=== PATIENT | female | born 1995 | race Caucasian/White ===

== ENCOUNTER 2016-06-10 11:28 | Inpatient (IN) | payer OTHER ==
[~2016-06-10] VITALS: Ht 162.6 cm; Wt 63.4 kg
[2016-06-10 12:27] LABS: AMPHETAMINES LEVEL URINE NEGATIVE (NEGATIVE); BENZODIAZEPINES URINE NEGATIVE (NEGATIVE); COCAINE METABOLITE URINE NEGATIVE (NEGATIVE); CONTROL LINE INT CTR LINE PRESENT; METHADONE URINE NEGATIVE (NEGATIVE); OPIATES URINE NEGATIVE (NEGATIVE); TRICYCLIC ANTIDEPRESS URINE NEGATIVE (NEGATIVE)
[2016-06-10 12:31] LABS: MEAN CORPUSCULAR HEMOGLOBIN 30.2 pg (27.0-33.0); MEAN CORPUSCULAR HGB CONC 34.2 g/dl (32.0-36.5); MEAN CORPUSCULAR VOLUME 88.2 fl (80.0-96.0); RED CELL DISTRIBUTION WIDTH 11.9 % (11.5-14.5); WHITE BLOOD COUNT 5.5 K/mm3 (4.0-10.0)
[2016-06-10 12:47] LABS: ALBUMIN 4.2 GM/DL (3.2-5.2); ALBUMIN/GLOBULIN RATIO 1.35 (1.00-1.93); ALKALINE PHOSPHATASE 72 U/L (45-117); ALT/SGPT 32 U/L (12-78); ANION GAP 7 MEQ/L (8-16); AST/SGOT 20 U/L (15-37); BILIRUBIN,DIRECT 0.1 MG/DL (0.0-0.2); BILIRUBIN,TOTAL 0.5 MG/DL (0.2-1.0); BLOOD UREA NITROGEN 13 MG/DL (7-18); CALCIUM LEVEL 8.6 MG/DL (8.5-10.1); CARBON DIOXIDE LEVEL 26 MEQ/L (21-32); CHLORIDE LEVEL 106 MEQ/L (98-107); CREATININE FOR GFR 0.75 MG/DL (0.55-1.02); GLUCOSE, FASTING 86 MG/DL (70-105); POTASSIUM SERUM 3.9 MEQ/L (3.5-5.1); SODIUM LEVEL 139 MEQ/L (136-145); TOTAL PROTEIN 7.3 GM/DL (6.4-8.2)
[2016-06-10] MEDS ORDERED: VITMTA PO (16:19)
[2016-06-10] MEDS ORDERED: LORazepam 1 MG TAB As Ordered ONE (16:28)
[2016-06-10] MEDS ORDERED: MAALOX 30 ML SUSP *UDC PO PRN (16:30)
[2016-06-10] MEDS ORDERED: MOM 30ML SUSPENSION UDC PO PRN (16:30)
[2016-06-10] MEDS ORDERED: traZODone 50 MG TAB PO PRN (16:30)
--- NOTE | 2016-06-10 16:33 | EDDOCDS ---
Physician Documentation [facility] Name: Basilia Matias Age: 21 yrs Sex: Female : 1995 Arrival Date: 06/10/2016 Time: 11:28 Bed [facility] Private MD: Disposition: 06/10/16 15:34 Hospitalization ordered by Felice Shelton for Inpatient Admission. Preliminary diagnosis is Major depressive disorder, single episode, unspecified. - Bed requested for Admit. - Status is Inpatient Admission. bcj - Condition is Stable. - Problem is new. - Symptoms have improved. Historical: - Allergies: Prednisone; - Home Meds: 1. multivitamin Oral tab 1 tablet daily - PMHx: Heart Murmur; Scoliosis; - PSHx: labial surgery; Tonsillectomy; Adenoidectomy; - Social history: Smoking status: Patient states was never smoker of tobacco. No barriers to communication noted, The patient speaks fluent Bulgarian, Speaks appropriately for age. - Family history: Not pertinent. - : The pt / caregiver states he / she is not on anticoagulants. Home medication list is obtained from the patient. - Exposure Risk Screening:: None identified. 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 fg 11:39 Consult PFS/PSA/Accountant Auditor: Patient's case requires discussion with on-call fg Psychiatrist ordered. 11:39 PSA/PFS to call Nursing Last Sawyer, to enter patient data on [place] Safe Act if patient fg involuntarily admitted or transferred for SI or HI ordered. 11:39 Confirm accurate psychiatric medication list and times of last dosage ordered. fg 11:39 Detain Pt Until Medically/PFS Cleared ordered. fg 11:40 Acetaminophen Level Ordered. EDMS 11:40 Basic Metabolic Profile Ordered. EDMS 11:40 Complete Blood Count Ordered. EDMS 11:40 Drug Eval Toxicology ED Only Ordered. EDMS 11:40 Ethyl Alcohol (ethanol) Ordered. EDMS 11:40 Liver Profile Ordered. EDMS 11:40 Salicylate Level Ordered. EDMS 11:40 Thyroid Stimulating Hormone Ordered. EDMS 12:04 UCG by Nursing ordered. jjr 15:43 Admit to [facility]: ordered. EDMS 15:49 Consult PFS/PSA/Accountant Auditor complete. bcj 15:49 Consult PFS/PSA/Accountant Auditor: Patient's case requires discussion with on-call [facility] Psychiatrist complete. 15:51 Financial registration complete. zo 15:56 MHE Legal paperwork was scanned into [employer] and attached to record. jl 16:05 [facility] Payment Agreement was scanned into [employer] and attached to record. zo 16:24 REGULAR DIET ordered. EDMS 16:27 LORazepam 0.5 mg PO once ordered. fg Point of Care Testing: Urine : 12:04 hCG Reading: Negative; Control Reading: Positive; jjr Ranges: Administered Medications: 16:32 Drug: LORazepam 0.5 mg [lorazepam 1 mg tablet (0.5 tabs)] Route: PO; [facility] Signatures: Dispatcher [employer] EDMN Eyad Bird RN RN bcMichael Blancas PSA PSA jl Nyla Fox Jessica, RN RN jjr Quay, PaulinaRN Christina Jordan MD MD fg The chart was reviewed and I authenticate all verbal orders and agree with the evaluation and treatment provided.Corrections: (The following items were deleted from the chart) 12:05 12:03 LAB URINE TEST+LAB ordered. EDMS EDMS Attachments: 16:05 [facility] Payment Agreement zo MTDD
--- NOTE | 2016-06-10 16:34 | EDDOCDS ---
Nurse's Notes [facility] Name: Basilia Matias Age: 21 yrs Sex: Female : 1995 Arrival Date: 06/10/2016 Time: 11:28 Bed [facility] Private MD: Diagnosis: Major depressive disorder, single episode, unspecified Presentation: 06/10 11:38 Presenting complaint: Patient states: had a panic attack last night - states long hx of pml anxiety. spoke with [facility] today and was sent here for further eval for SI with plan. Mental Health Triage Level: Level 2: The patient displays active suicidal ideations. Adult Sepsis Screening: The patient does not have new or worsening altered mentation. Patient's respiratory rate is less than 22. Systolic blood pressure is greater than 100. Patient has a qSOFA score of 0- Negative Sepsis Screen. Suicide/Homicide risk assessment- the patient denies having any suicidal and/or homicidal ideations and does not present with any other emotional, behavioral or mental health complaints. Status: The patient is a dependent. Transition of care: patient was not received from another setting of care. 11:38 Acuity: RODDY Level 3 pml 11:38 Method Of Arrival: Walkin/Carried/Asstd pml Triage Assessment: 11:39 General: Appears in no apparent distress, comfortable, Behavior is appropriate for age, pml cooperative. Pain: Denies pain. HIV screening NA for this visit Offered previously. The patient is triaged at the bedside. See Assessment in Nurses Notes section of ED record. Neurological: Level of Consciousness is awake, alert, Oriented to person, place, time. Cardiovascular: Capillary refill < 3 seconds. Respiratory: Airway is patent Respiratory effort is even, unlabored, Respiratory pattern is regular, symmetrical. GI: Abdomen is non- distended. Derm: Skin is pink, warm & dry. 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 multivitamin Oral tab 1 tablet daily - PMHx: Heart Murmur; Scoliosis; - PSHx: labial surgery; Tonsillectomy; Adenoidectomy; - Social history: Smoking status: Patient states was never smoker of tobacco. No barriers to communication noted, The patient speaks fluent Sami, Speaks appropriately for age. - Family history: Not pertinent. - : The pt / caregiver states he / she is not on anticoagulants. Home medication list is obtained from the patient. - Exposure Risk Screening:: None identified. Screenin:32 Screening information is obtained from the patient. Fall risk: No risks identified. bcj Assistance ADL's: requires no assistance with activities of daily living. Abuse/DV Screen: The patient / caregiver reports he/she is: not in a situation that causes fear, pain or injury. Nutritional screening: No deficits noted. Advance Directives: Currently, there is no health care proxy. home support is adequate. Assessment: 12:05 General: Appears in no apparent distress, well nourished, well groomed, Behavior is jjr appropriate for age, cooperative. Neurological: No deficits noted. Respiratory: No deficits noted. Derm: No deficits noted. 15:32 General: Appears in no apparent distress, comfortable, Behavior is cooperative. Pain: bcj Denies pain. Derm: Skin is pink, warm & dry. Mental Health Eval: 13:38 Mental health consult is initiated at 13:00. 14:19 Status: The patient is a dependent. [facility] Behavioral Health: The patient is not an established patient of [facility] Behavioral Health. Referral Information: Evaluation referral is generated by the patient's therapist Felipa Bennett at [facility]. The patient was referred for evaluation because Pt was seen at [facility] today, informed counselor that she is depressed, having suicidal thoughts with plan to hang self from ceiling fan. PT also states she thinks about cutting self all the time. 15:03 Subjective: The patients chief complaint is Pt presented on referral from counselor at [facility] . Pt reports she has been feeling increasingly depressed, having panic attacks "and everything goes downhill from there". 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 Pt states she thinks about hanging herself from the ceiling fan.. Delusions are denied. Patient's mood is depressed, Hallucinations are denied. Mental Health history: anxiety, depression, self -mutilation, sleep disturbance, Mental Health Admissions: None. Current Outpatient Mental Health Services: Therapist / Agency: Felipa Bennett at [facility]. Vital Signs: 11:47 BP 121 / 78; Pulse 80; Resp 18; Temp 97.2(T); Pulse Ox 99% on R/A; Weight 63.5 kg (R); dpm 15:48 BP 106 / 69; Pulse 76; Resp 18; Temp 98.5(O); Pulse Ox 96% on R/A; Pain 0/10; bcj Vitals: 11:39 Log In Time N/A - ambulance arrival. [facility] ED Course: 11:29 Patient visited by Rosie Silva Reg. lg 11:[address] [facility] 11:29 Patient moved to [facility] dpm 11:39 Triage Initiated [facility] 11:40 Christina Conner MD is Attending Physician. fg 11:41 Patient visited by Lesli Rocha RN. pml 11:47 Patient visited by Glenn Sánchez. dpm 11:50 Pt greeted and oriented to ED. Patient advised of names of staff involved in care, dpm location of call [place], wait times and NPO status. Patient has correct armband on for positive identification. Placed in gown. Placed in psych safe attire. Bed in low position. Side rails up X 1. Security observing. Property removed, inventory done, secured in belongings bag- placed in locked locker. Placed in locker 3. Lesli Maldonado observed pt while changing. Psych Safety Check: Location: Psych Room. Visual Assessment: Cooperative. 12:01 Patient visited by Glenn Sánchez. dpm 12:04 Acetaminophen Level Sent. jjr 12:04 Basic Metabolic Profile Sent. jjr 12:04 Complete Blood Count Sent. jjr 12:04 Drug Eval Toxicology ED Only Sent. jjr 12:04 Ethyl Alcohol (ethanol) Sent. jjr 12:04 Liver Profile Sent. jjr 12:04 Salicylate Level Sent. jjr 12:04 Thyroid Stimulating Hormone Sent. jjr 12:05 Patient visited by Tete Tovar RN. jjr 12:05 The patient / caregiver is instructed regarding the plan of care and ED course. jjr 12:17 Patient visited by Glenn Sánchez. dpm 12:36 Patient visited by Glenn Sánchez. dpm 12:46 Patient visited by Glenn Sánchez. dpm 13:03 Patient visited by Glenn Sánchez. dpm 13:18 Patient visited by Glenn Sánchez. dpm 13:32 Patient visited by Glenn Sánchez. dpm 13:48 Patient visited by Glenn Sánchez. dpm 14:17 Patient visited by Glenn Sánchez. dpm 14:57 Patient visited by Glenn Sánchez. dpm 14:57 Patient visited by Christina Conner MD. fg 15:17 Patient visited by Glenn Sánchez. dpm 15:32 No apparent distress. Resting quietly. awaiting re-evaluation by ER physician. bcj 15:32 Labs drawn. (by ED staff). Sent per order to lab. Urine collected. Clean catch bcj specimen. Urine specimen sent to lab. 15:33 Patient visited by Eyad Bird, RN. bcj 15:33 Felice Shelton MD is Hospitalizing Provider. fg 15:43 Patient visited by Glenn Sánchez. dpm 15:48 Patient visited by Eyad Bird, RN. j 15:56 E Legal paperwork was scanned into [employer] and attached to record. jl 16:00 Patient visited by Glenn Sánchez. dpm 16:05 [facility] Payment Agreement was scanned into [employer] and attached to record. zo 16:11 No IV's were initiated during this patient's visit. No procedures done that require pml assistance. 16:12 Patient visited by Lesli Rocha RN. pml 16:24 Patient visited by Eyad Bird, RN. bcj Administered Medications: 16:32 Drug: LORazepam 0.5 mg [lorazepam 1 mg tablet (0.5 tabs)] Route: PO; [facility] Attachments: 15:56 E Legal paperwork jl Point of Care Testing: Urine : 12:04 hCG Reading: Negative; Control Reading: Positive; jjr Ranges: Order Results: Lab Order: Acetaminophen Level; SPEC'M 06/10/16 11:59 Test: ACETAMINOPHEN LEVEL; Value: < 2.0; Range: 10.0-30.0; Abnormal: Below low normal; Units: UG/ML; Status: F Lab Order: Basic Metabolic Profile; SPEC'M 06/10/16 11:59 Test: GLUCOSE, FASTING; Value: 86; Range: 70-105; Units: MG/DL; Status: F Test: BLOOD UREA NITROGEN; Value: 13; Range: 7-18; Units: MG/DL; Status: F Test: CREATININE FOR GFR; Value: 0.75; Range: 0.55-1.02; Units: MG/DL; Status: F Test: SODIUM LEVEL; Value: 139; Range: 136-145; Units: MEQ/L; Status: F Test: POTASSIUM SERUM; Value: 3.9; Range: 3.5-5.1; Units: MEQ/L; Status: F Test: CHLORIDE LEVEL; Value: 106; Range: 98-107; Units: MEQ/L; Status: F Test: CARBON DIOXIDE LEVEL; Value: 26; Range: 21-32; Units: MEQ/L; Status: F Test: ANION GAP; Value: 7; Range: 8-16; Abnormal: Below low normal; Units: MEQ/L; Status: F Test: CALCIUM LEVEL; Value: 8.6; Range: 8.5-10.1; Units: MG/DL; Status: F Lab Order: Complete Blood Count; SPEC'M 06/10/16 11:59 Test: WHITE BLOOD COUNT; Value: 5.5; Range: 4.0-10.0; Units: K/mm3; Status: F Test: RED BLOOD COUNT; Value: 4.66; Range: 4.00-5.40; Units: M/mm3; Status: F Test: HEMOGLOBIN; Value: 14.1; Range: 12.0-16.0; Units: g/dl; Status: F Test: HEMATOCRIT; Value: 41.1; Range: 36.0-47.0; Units: %; Status: F Test: MEAN CORPUSCULAR VOLUME; Value: 88.2; Range: 80.0-96.0; Units: fl; Status: F Test: MEAN CORPUSCULAR HEMOGLOBIN; Value: 30.2; Range: 27.0-33.0; Units: pg; Status: F Test: MEAN CORPUSCULAR HGB CONC; Value: 34.2; Range: 32.0-36.5; Units: g/dl; Status: F Test: RED CELL DISTRIBUTION WIDTH; Value: 11.9; Range: 11.5-14.5; Units: %; Status: F Test: PLATELET COUNT, AUTOMATED; Value: 240; Range: 150-450; Units: k/mm3; Status: F Lab Order: Drug Eval Toxicology ED Only; SPEC'M 06/10/16 11:59 Test: AMPHETAMINES LEVEL URINE; Value: NEGATIVE; Range: NEGATIVE; Status: F Test: BARBITURATES URINE; Value: NEGATIVE; Range: NEGATIVE; Status: F Test: BENZODIAZEPINES URINE; Value: NEGATIVE; Range: NEGATIVE; Status: F Test: CANNABINOIDS URINE; Value: NEGATIVE; Range: NEGATIVE; Status: F Test: COCAINE METABOLITE URINE; Value: NEGATIVE; Range: NEGATIVE; Status: F Test: METHADONE URINE; Value: NEGATIVE; Range: NEGATIVE; Status: F Test: OPIATES URINE; Value: NEGATIVE; Range: NEGATIVE; Status: F Test: TRICYCLIC ANTIDEPRESS URINE; Value: NEGATIVE; Range: NEGATIVE; Status: F Test Note: ; ALL PRESUMPTIVE POSITIVE FINDINGS ARE UNCONFIRMED NORMAL VALUES THRESHOLD IN NG/ML AMPHETAMINES 1000 METHAMPHETAMINES 1000 BARBITURATES 300 BENZODIAZEPINES 300 CANNABINOIDS (THC) 50 COCAINE METABOLITE 300 METHADONE 300 OPIATES 300 PHENCYCLIDINE 25 TRICYCLIC ANTIDEPRESSANTS 1000 RESULTS ARE FOR MEDICAL PURPOSES ONLY. ALL URINE SPECIMENS WILL BE SAVED FOR 3 DAYS. IF CONFIRMATION OF A PRESUMPTIVE POSTIVE SCREEN RESULT IS DESIRED, CALL CHEMISTRY ([phone]) AND REQUEST URINE TO BE SENT TO REFERENCE LAB. FOR A LIST OF CLOSELY RELATED COMPOUNDS PLEASE CALL THE LAB. Lab Order: Ethyl Alcohol (ethanol); SPEC'M 06/10/16 11:59 Test: ETHYL ALCOHOL (ETHANOL); Value: < 0.003; Range: 0.000-0.010; Units: %; Status: F Lab Order: Liver Profile; SPEC'M 06/10/16 11:59 Test: AST/SGOT; Value: 20; Range: 15-37; Units: U/L; Status: F Test: ALT/SGPT; Value: 32; Range: 12-78; Units: U/L; Status: F Test: ALKALINE PHOSPHATASE; Value: 72; Range: 45-117; Units: U/L; Status: F Test: BILIRUBIN,TOTAL; Value: 0.5; Range: 0.2-1.0; Units: MG/DL; Status: F Test: BILIRUBIN,DIRECT; Value: 0.1; Range: 0.0-0.2; Units: MG/DL; Status: F Test: TOTAL PROTEIN; Value: 7.3; Range: 6.4-8.2; Units: GM/DL; Status: F Test: ALBUMIN; Value: 4.2; Range: 3.2-5.2; Units: GM/DL; Status: F Test: ALBUMIN/GLOBULIN RATIO; Value: 1.35; Range: 1.00-1.93; Status: F Lab Order: Salicylate Level; SPEC'M 06/10/16 11:59 Test: SALICYLATE LEVEL; Value: < 1.7; Range: 5.0-30.0; Abnormal: Below low normal; Units: MG/DL; Status: F Lab Order: Thyroid Stimulating Hormone; SPEC'M 06/10/16 11:59 Test: THYROID STIMULATING HORMONE; Value: 0.973; Range: 0.463-3.98; Units: uIU/ML; Status: F Outcome: 15:34 Decision to Hospitalize by Provider. fg 16:11 Discharge Assessment: patient administered narcotics - no. The following High Risk pml Discharge criteria are identified: None. Admitted to Psych accompanied by tech, via wheelchair. Condition: stable. No special radiology studies were completed. 16:32 Patient left the ED. [facility] Signatures: Eyad Bird, RN RN Tanner Hammer PSA PSA ac Michael Toth, PSA PSA Rosie Vallejo Reg Reg lg Olin, Zoeann zo Raymond, Jessica, Lesli Haddad RN, RN RN pml Marolf, Dustin dpm Gill, Frances, MD MD fg Corrections: (The following items were deleted from the chart) 15:27 14:19 Referral Information: Evaluation referral is generated by the patient's therapist crista Bennett at [facility]. The patient was referred for evaluation because Pt was seen at [facility] today, informed counselor that she is depressed, having suicidal thoughts with plan to hang self from ceiling fan. PT also states she thinks about cutting self all thetime. crista MTDD
[2016-06-10 17:20] VITALS: BP 138/77
[2016-06-10] MEDS ORDERED: MULTIVITAMINS/MINERALS THERAP 1 TAB PO ONE (18:00)
[2016-06-10 18:32] LABS: CONTROL LINE UCG INT CTR LINE PRESENT
[2016-06-11 18:00] VITALS: BP 116/74
[2016-06-11] MEDS: ACETAMINOPHEN TAB 650MG DOSE (2X325MG) PO PRN (20:43)
[2016-06-11] MEDS: traZODone 100 MG TAB PO SCH (22:14)
[2016-06-12 06:23] VITALS: BP 109/56
[2016-06-12] MEDS: ACETAMINOPHEN TAB 650MG DOSE (2X325MG) PO PRN (06:40)
[2016-06-12] MEDS: SERTRALINE HCL 25 MG TABLET PO SCH (08:15)
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
--- NOTE | 2016-06-12 17:34 | EDDOCDS ---
Nurse's Notes [facility] Name: Basilia Matias Age: 21 yrs Sex: Female : 1995 Arrival Date: 06/10/2016 Time: 11:28 Bed [facility] Private MD: Diagnosis: Major depressive disorder, single episode, unspecified Presentation: 06/10 11:38 Presenting complaint: Patient states: had a panic attack last night - states long hx of pml anxiety. spoke with [facility] today and was sent here for further eval for SI with plan. Mental Health Triage Level: Level 2: The patient displays active suicidal ideations. Adult Sepsis Screening: The patient does not have new or worsening altered mentation. Patient's respiratory rate is less than 22. Systolic blood pressure is greater than 100. Patient has a qSOFA score of 0- Negative Sepsis Screen. Suicide/Homicide risk assessment- the patient denies having any suicidal and/or homicidal ideations and does not present with any other emotional, behavioral or mental health complaints. Status: The patient is a dependent. Transition of care: patient was not received from another setting of care. 11:38 Acuity: RODDY Level 3 pml 11:38 Method Of Arrival: Walkin/Carried/Asstd pml Triage Assessment: 11:39 General: Appears in no apparent distress, comfortable, Behavior is appropriate for age, pml cooperative. Pain: Denies pain. HIV screening NA for this visit Offered previously. The patient is triaged at the bedside. See Assessment in Nurses Notes section of ED record. Neurological: Level of Consciousness is awake, alert, Oriented to person, place, time. Cardiovascular: Capillary refill < 3 seconds. Respiratory: Airway is patent Respiratory effort is even, unlabored, Respiratory pattern is regular, symmetrical. GI: Abdomen is non- distended. Derm: Skin is pink, warm & dry. HEAD BAKER: 11:39 LMP 05/08/2016 pml Historical: - Allergies: Prednisone; - Home Meds: 1. multivitamin Oral tab 1 tablet daily - PMHx: Heart Murmur; Scoliosis; - PSHx: labial surgery; Tonsillectomy; Adenoidectomy; - Social history: Smoking status: Patient states was never smoker of tobacco. No barriers to communication noted, The patient speaks fluent Croatian, Speaks appropriately for age. - Family history: Not pertinent. - : The pt / caregiver states he / she is not on anticoagulants. Home medication list is obtained from the patient. - Exposure Risk Screening:: None identified. Screenin:32 Screening information is obtained from the patient. Fall risk: No risks identified. bcj Assistance ADL's: requires no assistance with activities of daily living. Abuse/DV Screen: The patient / caregiver reports he/she is: not in a situation that causes fear, pain or injury. Nutritional screening: No deficits noted. Advance Directives: Currently, there is no health care proxy. home support is adequate. Assessment: 12:05 General: Appears in no apparent distress, well nourished, well groomed, Behavior is jjr appropriate for age, cooperative. Neurological: No deficits noted. Respiratory: No deficits noted. Derm: No deficits noted. 15:32 General: Appears in no apparent distress, comfortable, Behavior is cooperative. Pain: bcj Denies pain. Derm: Skin is pink, warm & dry. Mental Health Eval: 13:38 Mental health consult is initiated at 13:00. 14:19 Status: The patient is a dependent. [facility] Behavioral Health: The patient is not an established patient of [facility] Behavioral Health. Referral Information: Evaluation referral is generated by the patient's therapist Felipa Bennett at [facility]. The patient was referred for evaluation because Pt was seen at [place] today, informed counselor that she is depressed, having suicidal thoughts with plan to hang self from ceiling fan. PT also states she thinks about cutting self all the time. 15:03 Subjective: The patients chief complaint is Pt presented on referral from counselor at [facility] . Pt reports she has been feeling increasingly depressed, having panic attacks "and everything goes downhill from there". 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 Pt states she thinks about hanging herself from the ceiling fan.. Delusions are denied. Patient's mood is depressed, Hallucinations are denied. Mental Health history: anxiety, depression, self -mutilation, sleep disturbance, Mental Health Admissions: None. Current Outpatient Mental Health Services: Therapist / Agency: Felipa Bennett at [facility]. 15:30 Patient presents to Emergency Department with the following symptoms within the past 2 weeks: anxiety, depressed mood. Substance abuse: Pt denies. Mental status exam: Patients appearance is appropriate, Patient's behavior is cooperative, Speech is normal. Affect is appropriate. Mood is depressed. Hallucinations are denied. Appetite is normal. Memory is good. Energy level is normal. Content of thought is normal. Thought process is intact. Cognitive level is oriented to person, place, time and situation Patient's insight is fair. Judgement is poor. Rapport with interviewer is good. Suicidal Ideation present with a plan to kill self by hanging. Homicidal ideation is not present. Disposition: Medically cleared for disposition by Christina Conner MD Psychiatric Consult is performed by phone with Dr Felice Shelton MD. ON LICENSE OF [facility] Admission Criteria: The patient is experiencing suicidal ideation. The patient requires continuous observation and/or control to protect self, others or property. The patient's care requires a multi-modal treatment plan under close supervision and coordination due to the complexity and severity of the patient's symptoms. The patient requires administration and monitoring of psychoactive medications by skilled medical providers due to the side effects of the psychoactive medications or significant dosage adjustments. Legal Status: Patient's legal status will be Emergency admission: . [place] Safe Act: [place] Safe Act is applicable to this patient. The patient poses a risk to self or other and the Nursing Medicine Worker has been notified. He/She will enter the patient's data. DSM-V Differential Diagnosis: Unspecified Depressive Disorder (F32.9). Insurance Pre-Certification: Not Required. Narrative: Pt presented on referral from counselor at [facility]. Pt states she gets panic attacks and then starts thinking about cutting herself. 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 Pt also states that she has suicidal thoughts of hanging herself by ceiling fan. Pt denies HI, no AH/VH, no drug or ETOH use. PT denies inpatient hx. Pt states she is concerned that because her is leaving for [place] for 9 months, and his 18 yo brother is staying with her, that she will not have enough support at home. Pt remains very anxious, states she doesn't want to stay in hospital. Pt is not able to provide adequate safety plan at this time. Vital Signs: 11:47 BP 121 / 78; Pulse 80; Resp 18; Temp 97.2(T); Pulse Ox 99% on R/A; Weight 63.5 kg (R); dpm 15:48 BP 106 / 69; Pulse 76; Resp 18; Temp 98.5(O); Pulse Ox 96% on R/A; Pain 0/10; bcj Vitals: 11:39 Log In Time N/A - ambulance arrival. [facility] ED Course: 11:29 Patient visited by Rosie Silva Reg. lg 11:29 Patient moved to [facility] 11:29 Patient moved to [facility] dpm 11:39 Triage Initiated [facility] 11:40 Christina Conner MD is Attending Physician. fg 11:41 Patient visited by Lesli Rocha RN. pml 11:47 Patient visited by Glenn Sánchez. dpm 11:50 Pt greeted and oriented to ED. Patient advised of names of staff involved in care, dpm location of call [place], wait times and NPO status. Patient has correct armband on for positive identification. Placed in gown. Placed in psych safe attire. Bed in low position. Side rails up X 1. Security observing. Property removed, inventory done, secured in belongings bag- placed in locked locker. Placed in locker 3. Lesli Maldonado observed pt while changing. Psych Safety Check: Location: Psych Room. Visual Assessment: Cooperative. 12:01 Patient visited by Glenn Sánchez. dpm 12:04 Acetaminophen Level Sent. jjr 12:04 Basic Metabolic Profile Sent. jjr 12:04 Complete Blood Count Sent. jjr 12:04 Drug Eval Toxicology ED Only Sent. jjr 12:04 Ethyl Alcohol (ethanol) Sent. jjr 12:04 Liver Profile Sent. jjr 12:04 Salicylate Level Sent. jjr 12:04 Thyroid Stimulating Hormone Sent. jjr 12:05 Patient visited by Tete Tovar RN. jjr 12:05 The patient / caregiver is instructed regarding the plan of care and ED course. jjr 12:17 Patient visited by Glenn Sánchez. dpm 12:36 Patient visited by Glenn Sánchez. dpm 12:46 Patient visited by Glenn Sánchez. dpm 13:03 Patient visited by Glenn Sánchez. dpm 13:18 Patient visited by Glenn Sánchez. dpm 13:32 Patient visited by Glenn Sánchez. dpm 13:48 Patient visited by Glenn Sánchez. dpm 14:17 Patient visited by Glenn Sánchez. dpm 14:57 Patient visited by Glenn Sánchez. dpm 14:57 Patient visited by Crhistina Conner MD. fg 15:17 Patient visited by Glenn Sánchez. dpm 15:32 No apparent distress. Resting quietly. awaiting re-evaluation by ER physician. bcj 15:32 Labs drawn. (by ED staff). Sent per order to lab. Urine collected. Clean catch j specimen. Urine specimen sent to lab. 15:33 Patient visited by Eyad Bird, RN. bcj 15:33 Felice Shelton MD is Hospitalizing Provider. fg 15:43 Patient visited by Glenn Sánchez. dpm 15:48 Patient visited by Eyad Bird, RN. j 15:56 E Legal paperwork was scanned into [employer] and attached to record. jl 16:00 Patient visited by Glenn Sánchez. dpm 16:05 [facility] Payment Agreement was scanned into [employer] and attached to record. zo 16:11 No IV's were initiated during this patient's visit. No procedures done that require pml assistance. 16:12 Patient visited by Lesli Rocha RN. pml 16:24 Patient visited by Eyad Bird, RN. [facility] 06/11 08:51 PCR was scanned into [employer] and attached to record. gb 11:24 T-Sheet-- Draft Copy was scanned into [employer] and attached to record. gb Administered Medications: 06/10 16:32 Drug: LORazepam 0.5 mg [lorazepam 1 mg tablet (0.5 tabs)] Route: PO; [facility] Attachments: 15:56 E Legal paperwork jl Point of Care Testing: Urine : 06/10 12:04 hCG Reading: Negative; Control Reading: Positive; jjr Ranges: Order Results: Lab Order: Acetaminophen Level; SPEC'M 06/10/16 11:59 Test: ACETAMINOPHEN LEVEL; Value: < 2.0; Range: 10.0-30.0; Abnormal: Below low normal; Units: UG/ML; Status: F Lab Order: Basic Metabolic Profile; SPEC'M 06/10/16 11:59 Test: GLUCOSE, FASTING; Value: 86; Range: 70-105; Units: MG/DL; Status: F Test: BLOOD UREA NITROGEN; Value: 13; Range: 7-18; Units: MG/DL; Status: F Test: CREATININE FOR GFR; Value: 0.75; Range: 0.55-1.02; Units: MG/DL; Status: F Test: SODIUM LEVEL; Value: 139; Range: 136-145; Units: MEQ/L; Status: F Test: POTASSIUM SERUM; Value: 3.9; Range: 3.5-5.1; Units: MEQ/L; Status: F Test: CHLORIDE LEVEL; Value: 106; Range: 98-107; Units: MEQ/L; Status: F Test: CARBON DIOXIDE LEVEL; Value: 26; Range: 21-32; Units: MEQ/L; Status: F Test: ANION GAP; Value: 7; Range: 8-16; Abnormal: Below low normal; Units: MEQ/L; Status: F Test: CALCIUM LEVEL; Value: 8.6; Range: 8.5-10.1; Units: MG/DL; Status: F Lab Order: Complete Blood Count; SPEC'M 06/10/16 11:59 Test: WHITE BLOOD COUNT; Value: 5.5; Range: 4.0-10.0; Units: K/mm3; Status: F Test: RED BLOOD COUNT; Value: 4.66; Range: 4.00-5.40; Units: M/mm3; Status: F Test: HEMOGLOBIN; Value: 14.1; Range: 12.0-16.0; Units: g/dl; Status: F Test: HEMATOCRIT; Value: 41.1; Range: 36.0-47.0; Units: %; Status: F Test: MEAN CORPUSCULAR VOLUME; Value: 88.2; Range: 80.0-96.0; Units: fl; Status: F Test: MEAN CORPUSCULAR HEMOGLOBIN; Value: 30.2; Range: 27.0-33.0; Units: pg; Status: F Test: MEAN CORPUSCULAR HGB CONC; Value: 34.2; Range: 32.0-36.5; Units: g/dl; Status: F Test: RED CELL DISTRIBUTION WIDTH; Value: 11.9; Range: 11.5-14.5; Units: %; Status: F Test: PLATELET COUNT, AUTOMATED; Value: 240; Range: 150-450; Units: k/mm3; Status: F Lab Order: Drug Eval Toxicology ED Only; SPEC'M 06/10/16 11:59 Test: AMPHETAMINES LEVEL URINE; Value: NEGATIVE; Range: NEGATIVE; Status: F Test: BARBITURATES URINE; Value: NEGATIVE; Range: NEGATIVE; Status: F Test: BENZODIAZEPINES URINE; Value: NEGATIVE; Range: NEGATIVE; Status: F Test: CANNABINOIDS URINE; Value: NEGATIVE; Range: NEGATIVE; Status: F Test: COCAINE METABOLITE URINE; Value: NEGATIVE; Range: NEGATIVE; Status: F Test: METHADONE URINE; Value: NEGATIVE; Range: NEGATIVE; Status: F Test: OPIATES URINE; Value: NEGATIVE; Range: NEGATIVE; Status: F Test: TRICYCLIC ANTIDEPRESS URINE; Value: NEGATIVE; Range: NEGATIVE; Status: F Test Note: ; ALL PRESUMPTIVE POSITIVE FINDINGS ARE UNCONFIRMED NORMAL VALUES THRESHOLD IN NG/ML AMPHETAMINES 1000 METHAMPHETAMINES 1000 BARBITURATES 300 BENZODIAZEPINES 300 CANNABINOIDS (THC) 50 COCAINE METABOLITE 300 METHADONE 300 OPIATES 300 PHENCYCLIDINE 25 TRICYCLIC ANTIDEPRESSANTS 1000 RESULTS ARE FOR MEDICAL PURPOSES ONLY. ALL URINE SPECIMENS WILL BE SAVED FOR 3 DAYS. IF CONFIRMATION OF A PRESUMPTIVE POSTIVE SCREEN RESULT IS DESIRED, CALL CHEMISTRY ([phone]) AND REQUEST URINE TO BE SENT TO REFERENCE LAB. FOR A LIST OF CLOSELY RELATED COMPOUNDS PLEASE CALL THE LAB. Lab Order: Ethyl Alcohol (ethanol); SPEC'M 06/10/16 11:59 Test: ETHYL ALCOHOL (ETHANOL); Value: < 0.003; Range: 0.000-0.010; Units: %; Status: F Lab Order: Liver Profile; SPEC'M 06/10/16 11:59 Test: AST/SGOT; Value: 20; Range: 15-37; Units: U/L; Status: F Test: ALT/SGPT; Value: 32; Range: 12-78; Units: U/L; Status: F Test: ALKALINE PHOSPHATASE; Value: 72; Range: 45-117; Units: U/L; Status: F Test: BILIRUBIN,TOTAL; Value: 0.5; Range: 0.2-1.0; Units: MG/DL; Status: F Test: BILIRUBIN,DIRECT; Value: 0.1; Range: 0.0-0.2; Units: MG/DL; Status: F Test: TOTAL PROTEIN; Value: 7.3; Range: 6.4-8.2; Units: GM/DL; Status: F Test: ALBUMIN; Value: 4.2; Range: 3.2-5.2; Units: GM/DL; Status: F Test: ALBUMIN/GLOBULIN RATIO; Value: 1.35; Range: 1.00-1.93; Status: F Lab Order: Salicylate Level; SPEC'M 06/10/16 11:59 Test: SALICYLATE LEVEL; Value: < 1.7; Range: 5.0-30.0; Abnormal: Below low normal; Units: MG/DL; Status: F Lab Order: Thyroid Stimulating Hormone; SPEC'M 06/10/16 11:59 Test: THYROID STIMULATING HORMONE; Value: 0.973; Range: 0.463-3.98; Units: uIU/ML; Status: F Outcome: 15:34 Decision to Hospitalize by Provider. fg 16:11 Discharge Assessment: patient administered narcotics - no. The following High Risk pml Discharge criteria are identified: None. Admitted to Psych accompanied by tech, via wheelchair. Condition: stable. No special radiology studies were completed. 16:32 Patient left the ED. [facility] Signatures: Eyad Bird RN RN bcTanner Shin, LAYLA PSA ac Michael Toth, PSA PSA jl Julissa Thacker, Reg Reg gb Rosie Silva, Reg Reg lg Nyla Fox Jessica, RN RN jjr Quay, Paulina, RN RN pml Marolf, Dustin dpm Gill, Frances, MD MD fg Corrections: (The following items were deleted from the chart) 15:27 14:19 Referral Information: Evaluation referral is generated by the patient's therapist crista Bennett at [facility]. The patient was referred for evaluation because Pt was seen at [place] today, informed counselor that she is depressed, having suicidal thoughts with plan to hang self from ceiling fan. PT also states she thinks about cutting self all thetime. ac Chart Complete MTDD
--- NOTE | 2016-06-12 17:34 | EDDOCDS ---
Physician Documentation [facility] Name: Basilia Matias Age: 21 yrs Sex: Female : 1995 Arrival Date: 06/10/2016 Time: 11:28 Bed [facility] Private MD: Disposition: 06/10/16 15:34 Hospitalization ordered by Felice Shelton for Inpatient Admission. Preliminary diagnosis is Major depressive disorder, single episode, unspecified. - Bed requested for Admit. - Status is Inpatient Admission. bcj - Condition is Stable. - Problem is new. - Symptoms have improved. Historical: - Allergies: Prednisone; - Home Meds: 1. multivitamin Oral tab 1 tablet daily - PMHx: Heart Murmur; Scoliosis; - PSHx: labial surgery; Tonsillectomy; Adenoidectomy; - Social history: Smoking status: Patient states was never smoker of tobacco. No barriers to communication noted, The patient speaks fluent Cuban, Speaks appropriately for age. - Family history: Not pertinent. - : The pt / caregiver states he / she is not on anticoagulants. Home medication list is obtained from the patient. - Exposure Risk Screening:: None identified. VENEER DRIER: 06/10 11:39 LMP 05/08/2016 pml Vital Signs: 11:47 BP 121 / 78; Pulse 80; Resp 18; Temp 97.2(T); Pulse Ox 99% on R/A; Weight 63.5 kg / dpm 139.99 lbs (R); 15:48 BP 106 / 69; Pulse 76; Resp 18; Temp 98.5(O); Pulse Ox 96% on R/A; Pain 0/10; bcj MDM: 11:39 Consult PFS/PSA/Filenet Architect ordered. fg 11:39 Consult PFS/PSA/Filenet Architect: Patient's case requires discussion with on-call fg Psychiatrist ordered. 11:39 PSA/PFS to call Nursing Product Marketing Director, to enter patient data on [place] Safe Act if patient fg involuntarily admitted or transferred for SI or HI ordered. 11:39 Confirm accurate psychiatric medication list and times of last dosage ordered. fg 11:39 Detain Pt Until Medically/PFS Cleared ordered. fg 11:40 Acetaminophen Level Ordered. EDMS 11:40 Basic Metabolic Profile Ordered. EDMS 11:40 Complete Blood Count Ordered. EDMS 11:40 Drug Eval Toxicology ED Only Ordered. EDMS 11:40 Ethyl Alcohol (ethanol) Ordered. EDMS 11:40 Liver Profile Ordered. EDMS 11:40 Salicylate Level Ordered. EDMS 11:40 Thyroid Stimulating Hormone Ordered. EDMS 12:04 UCG by Nursing ordered. jjr 15:43 Admit to [facility]: ordered. EDMS 15:49 Consult PFS/PSA/Filenet Architect complete. bcj 15:49 Consult PFS/PSA/Filenet Architect: Patient's case requires discussion with on-call [facility] Psychiatrist complete. 15:51 Financial registration complete. zo 15:56 [facility] Legal paperwork was scanned into [email or web address] and attached to record. jl 16:05 [facility] Payment Agreement was scanned into [email or web address] and attached to record. zo 16:24 REGULAR DIET ordered. EDMS 16:27 LORazepam 0.5 mg PO once ordered. fg 02 08:51 PCR was scanned into [email or web address] and attached to record. gb 11:24 T-Sheet-- Draft Copy was scanned into [email or web address] and attached to record. luis felipe Point of Care Testing: Urine : 06/10 12:04 hCG Reading: Negative; Control Reading: Positive; jjr Ranges: Administered Medications: 16:32 Drug: LORazepam 0.5 mg [lorazepam 1 mg tablet (0.5 tabs)] Route: PO; [facility] Signatures: Dispatcher [employer] Eyad Sheppard, RN Michael Kerr PSA PSA Julissa Victoria, Reg Reg gb Nyla Fox Jessica, RN RN jjLesli Smith RN RN pml Gill, Frances, MD MD fg The chart was reviewed and I authenticate all verbal orders and agree with the evaluation and treatment provided.Corrections: (The following items were deleted from the chart) 12:05 12:03 LAB URINE TEST+LAB ordered. EDMS EDMS Attachments: 16:05 [facility] Payment Agreement zo 11:24 T-Sheet-- Draft Copy gb Chart Complete MTDD
--- NOTE | 2016-06-12 17:34 | EDDOCDS ---
Physician Documentation [facility] Name: Basilia Matias Age: 21 yrs Sex: Female : 1995 Arrival Date: 06/10/2016 Time: 11:28 Bed [facility] Private MD: Disposition: 06/10/16 15:34 Hospitalization ordered by Felice Shelton for Inpatient Admission. Preliminary diagnosis is Major depressive disorder, single episode, unspecified. - Bed requested for Admit. - Status is Inpatient Admission. bcj - Condition is Stable. - Problem is new. - Symptoms have improved. Historical: - Allergies: Prednisone; - Home Meds: 1. multivitamin Oral tab 1 tablet daily - PMHx: Heart Murmur; Scoliosis; - PSHx: labial surgery; Tonsillectomy; Adenoidectomy; - Social history: Smoking status: Patient states was never smoker of tobacco. No barriers to communication noted, The patient speaks fluent Omani, Speaks appropriately for age. - Family history: Not pertinent. - : The pt / caregiver states he / she is not on anticoagulants. Home medication list is obtained from the patient. - Exposure Risk Screening:: None identified. VEGETABLE SPECKER: 06/10 11:39 LMP 05/08/2016 pml Vital Signs: 11:47 BP 121 / 78; Pulse 80; Resp 18; Temp 97.2(T); Pulse Ox 99% on R/A; Weight 63.5 kg / dpm 139.99 lbs (R); 15:48 BP 106 / 69; Pulse 76; Resp 18; Temp 98.5(O); Pulse Ox 96% on R/A; Pain 0/10; bcj MDM: 11:39 Consult PFS/PSA/Promotions Executive ordered. fg 11:39 Consult PFS/PSA/Promotions Executive: Patient's case requires discussion with on-call fg Psychiatrist ordered. 11:39 PSA/PFS to call Nursing Professor Of Archaeology, to enter patient data on [place] Safe Act if patient fg involuntarily admitted or transferred for SI or HI ordered. 11:39 Confirm accurate psychiatric medication list and times of last dosage ordered. fg 11:39 Detain Pt Until Medically/PFS Cleared ordered. fg 11:40 Acetaminophen Level Ordered. EDMS 11:40 Basic Metabolic Profile Ordered. EDMS 11:40 Complete Blood Count Ordered. EDMS 11:40 Drug Eval Toxicology ED Only Ordered. EDMS 11:40 Ethyl Alcohol (ethanol) Ordered. EDMS 11:40 Liver Profile Ordered. EDMS 11:40 Salicylate Level Ordered. EDMS 11:40 Thyroid Stimulating Hormone Ordered. EDMS 12:04 UCG by Nursing ordered. jjr 15:43 Admit to [facility]: ordered. EDMS 15:49 Consult PFS/PSA/Promotions Executive complete. bcj 15:49 Consult PFS/PSA/Promotions Executive: Patient's case requires discussion with on-call [facility] Psychiatrist complete. 15:51 Financial registration complete. zo 15:56 MHE Legal paperwork was scanned into [email or web address] and attached to record. jl 16:05 [facility] Payment Agreement was scanned into [email or web address] and attached to record. zo 16:24 REGULAR DIET ordered. EDMS 16:27 LORazepam 0.5 mg PO once ordered. fg 02 08:51 PCR was scanned into [email or web address] and attached to record. gb 11:24 T-Sheet-- Draft Copy was scanned into [email or web address] and attached to record. luis felipe Point of Care Testing: Urine : 06/10 12:04 hCG Reading: Negative; Control Reading: Positive; jjr Ranges: Administered Medications: 16:32 Drug: LORazepam 0.5 mg [lorazepam 1 mg tablet (0.5 tabs)] Route: PO; [facility] Signatures: Dispatcher [employer] Eyad Sheppard, RN Michael Kerr PSA PSA Julissa Victoria, Reg Reg gb Nyla Fox Jessica, RN RN jjLesli Smith RN RN pml Gill, Frances, MD MD fg The chart was reviewed and I authenticate all verbal orders and agree with the evaluation and treatment provided.Corrections: (The following items were deleted from the chart) 12:05 12:03 LAB URINE TEST+LAB ordered. EDMS EDMS Attachments: 16:05 [facility] Payment Agreement zo 11:24 T-Sheet-- Draft Copy gb Chart Complete MTDD
[2016-06-12 18:00] VITALS: BP 123/65
--- NOTE | 2016-06-12 18:02 | ECGEPIP ---
Stationary ECG Study [facility] Test Date: 2016-06-12 Pat Name: SOPHIA GANNON Department: Room: [place] [address] Gender: F Quality Coordinator: REDDY : 1995 Requested By: Felice Shelton Order Number: [id number] Reading MD: Irvin Bedolla Measurements Intervals [place] Rate: 62 P: 52 [place]: 174 QRS: 38 QRSD: 82 T: 29 QT: 392 QTc: 399 Interpretive Statements SINUS RHYTHM Normal Electronically Signed On 06-12-2016 18:02:28 EST by Irvin Bedolla
[2016-06-12] MEDS: traZODone 100 MG TAB PO SCH (21:53)
[2016-06-12] MEDS ORDERED: IBUPROFEN 800 MG TAB PO PRN (22:00)
[2016-06-13 06:39] VITALS: BP 129/60
[2016-06-13] MEDS: SERTRALINE HCL 25 MG TABLET PO SCH (09:21)
--- NOTE | 2016-06-13 12:13 | IPNPDOC ---
[facility] Progress Note Progress Note DATE OF SERVICE: 06/13/16 HISTORY: Patient is 21-year-old female who was admitted due to increasing symptoms of anxiety, depression, and suicidal thinking with plan to hang self, had also been experiencing self-injurious thinking involving cutting self. Patient reportedly has a history of ADHD as a child. Furrier Designer met with patient on inpatient unit to assess treatment progress. Patient has been visible, attending groups, and is socializing with peers. Patient is currently taking Zoloft and trazodone, indicates trazodone is effective for sleep and denies nightmares symptoms. Patient indicates she feels "better," since beginning Zoloft, denies medication side effects. Patient reports improvement to concentration and focus, indicates energy level is stable, denies mood lability , denies panic and irritability, states appetite is stable. Patient rates current anxiety level is 5/10, depression 2/10, denies suicidal and homicidal ideation, denies audiovisual hallucinations, and denies urge to engage in self- injurious behavior. Patient denies chest pain at time of interaction, further denies symptoms of shortness of breath, dizziness, palpitations, headache. Patient reported chest pain earlier in the day and on 06/12/16, EKG done with normal results. Patient has been instructed to alert nursing immediately if symptoms return. Nursing has informed PA who is monitoring patient. Patient indicates her discharge plan is to return home, verbalizes she is comfortable with discharge to home even though leaves for deployment. Patient states she is in agreement with 's deployment, notes 18-year-old [id number] also resides in the home, along with 2 dogs. Patient indicates [id number] and dogs are "my good support," adds she has a job at [employer] which she feels motivated to try to hold onto well 's unemployment and is planning to begin attending [employer] school. Addendum: Patient makes request for "a form" to be given to 's command informing them of patient's hospitalization and to alert her employer that she is in the hospital. 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 VITAL SIGNS: See below. NEW TEST RESULTS: Patient denies history of chronic medical problems, indicates she has a benign heart murmur and a history of surgery for labial fusion. Labs at time of admission indicate low anion gap. UDS negative on admission HCG negative on admission EKG 06/12/16 sinus rhythm CURRENT MEDICATIONS: See below. 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 Speech: Is of normal rate, rhythm, volume. Language skills are intact. Thought processes including: Clear, goal-directed. Thought content: Logical, rational Description of associations: Intact. Description of abnormal or psychotic thoughts: Denies hallucinations, delusions , preoccupation with violence, homicidal or suicidal ideation, and obsessions Judgment: Poor. Insight: Poor. Orientation to [time, place and person]. Recent and remote memory: [Immediate, short-term and long-term memory is intact] . Attention span and concentration: Fair. Language: [Normal]. Fund of knowledge: Adequate. Mood: "I'm ok, better than I was feeling." No irritability or mood lability noted Affect: Constricted, brightens at times, congruent with mood. DIAGNOSES: Unspecified mood disorder, rule out MDD, rule out adjustment disorder with mixed anxiety and depressed mood, ADHD history by patient report ASSESSMENT: Patient is adjusting well to unit, is attending groups, is visible, is easily engaged. Patient indicates current medication regimen is effective and she denies medication side effects. Patient denies suicidal and homicidal thinking and is able to verbalize how to access supportive services on unit if needed. Patient indicates discharge plan is to home, states she is in agreement with deploying, indicates she wants to participate in outpatient psychotherapy and medication management services after discharge from hospital. Will monitor patient's response to Zoloft and trazodone, monitor for side effects, and evaluate patient safety, resolution of suicidal ideation, and discharge readiness. MANAGEMENT PLAN: Continue Zoloft 25 mg po q am and Trazodone 100 mg po hs PRN insomnia Maintain safety precautions Patient to attend groups and participate in unit programming to develop coping strategies Engage patient in discharge planning process and arrange meeting with support system to ensure safe discharge planning when appropriate Patient to follow up with PCM upon discharge TIME SPENT: 35 minutes. Vital Signs Vital Signs Date Time Temp Pulse Resp B/P Pulse Ox O2 Delivery O2 Flow Rate FiO2 06/13/16 06:39 99.9 94 18 129/60 Current Medications Current Medications Acetaminophen (Tylenol Tab) 650 mg Q6HP PRN PO HEADACHE or DISCOMFORT Last administered on 06/12/16 06:40; Start 06/10/16 at 16:30; Stop 07/10/16 at 16:29 Al Hydrox/Mg Hydrox/Simethicone (Mylanta) 30 ml Q4HP PRN PO HEARTBURN/ INDIGESTION Last administered on 06/11/16 16:22; Start 06/10/16 at 16:30; Stop 07/10/16 at 16:29 Home Med (Med Rec Complete!) ASDIRECTED XX ; Start 06/10/16 at 16:30; Stop at 16:52; Status DC Ibuprofen (Advil) 800 mg Q8HP PRN PO MODERATE PAIN (PS 5-7) Last administered on 06/13/16 08:19; Start 06/12/16 at 22:00; Stop 07/12/16 at 21:59 Magnesium Hydroxide (Milk Of Magnesia) 30 ml DAILYPRN PRN PO CONSTIPATION; Start 06/10/16 at 16:30; Stop 07/10/16 at 16:29 Sertraline HCl (Zoloft) 25 mg DAILY PO Last administered on 06/13/16 09:21; Start 06/12/16 at 09:00; Stop 06/14/16 at 10:00 Sertraline HCl (Zoloft) 50 mg QAM PO ; Start 06/15/16 at 09:00; Stop 07/15/16 at 08:59 Trazodone HCl (Desyrel) 50 mg QHSP PRN PO INSOMNIA Last administered on 20:23; Start 06/10/16 at 16:30; Stop 06/11/16 at 12:08; Status DC Trazodone HCl (Desyrel) 100 mg QHS PO Last administered on 06/12/16 21:53; Start 06/11/16 at 21:00; Stop 07/11/16 at 20:59 Allergies Coded Allergies: Oxycodone (Verified Allergy, Unknown, 06/10/16) Prednisone (Unverified Allergy, Unknown, 06/10/16) Joy Liao Jun 13, 2016 12:12
[2016-06-13 14:20] VITALS: BP 125/62
--- NOTE | 2016-06-13 16:59 | IPN ---
DATE: 06/12/2016 21-year-old female without a significant psychiatric history except attention deficit hyperactivity disorder (ADHD) diagnosed during childhood. Patient was admitted for increasing depression and suicidal ideation. MEDICATIONS: - Zoloft 25 mg by mouth every morning - trazodone 100 mg by mouth nightly. SUBJECTIVE: "I am feeling about the same." OBJECTIVE: Patient continues depressed, anxious, labile with psychomotor retardation and restricted facial expression. Patient is denying side effects from the medication. Slept well with the help of trazodone. MENTAL STATUS EXAMINATION: Patient is dressed in [facility]. Patient is cooperative during the exam. Has fair eye contact. Speech is slow and monotone. Mood is depressed and anxious. Affect is labile and restricted. No delusions or hallucinations. Short and petroleum terminal plant operator memory are intact. Patient is fully oriented. Associations are intact. Thinking is logical. Thought content is appropriate. Patient is able to contract for safety and denies suicidal or homicidal ideation during the interview. Insight and judgment is limited. ASSESSMENT: 1. Depression. 2. Suicidal ideation. PLAN: 1. Sertraline 250 mg by mouth in the morning. 2. Continue trazodone 100 mg by mouth nightly. 3. Continue close observation. 4. Continue with medication management, individual, and group therapy.
[2016-06-13 18:00] VITALS: BP 116/58
[2016-06-13] MEDS: traZODone 100 MG TAB PO SCH (22:11)
--- NOTE | 2016-06-14 05:29 | HPE ---
DATE OF ADMISSION: 06/10/2016 HISTORY OF PRESENT ILLNESS: Please refer to psychiatric history and evaluation for further details on this admission. This examination and history is intended for medical issues, which may need treatment, followup or consult on this 21-year-old female. PRIMARY CARE PROVIDER: Aleida SWANSON. ALLERGIES: PREDNISONE and PERCOCET. 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 Ethyl alcohol (EtOH) none. Smokes none. Recreational drug use none. PAST MEDICAL HISTORY: 1. Heart murmur as an infant. 2. Anxiety. 3. Depression. PAST SURGICAL HISTORY: 1. Tonsillectomy and adenoidectomy. 2. Surgery for labial fusion times two, once at age 13, once at age 20. HOME MEDICATIONS: Multivite one by mouth daily. LABORATORY STUDIES: CBC was normal. Electrolytes were normal. BUN and creatinine were 13 and 0.75. Toxicology screen was negative. EKG showed normal sinus rhythm, rate of 62. FAMILY HISTORY: Noncontributory. REVIEW OF SYSTEMS: 10-system review was done. Other than menstrual cramps, was negative. She was feeling well. OBJECTIVE: Height 64 inches, weight 64.6 kg, body mass index (BMI) 24.4. Temperature 98, pulse 87, respirations 16, blood pressure 109/56. Patient is alert and oriented times three. Pupils equal and react to light. Extraocular muscles intact. Cornea and sclerae clear. Conjunctivae were normal. No facial asymmetry. Pharynx, tongue and gums pink and moist. Tongue is midline. Neck is supple without lymphadenopathy. No thyromegaly, no goiter. Chest clear to auscultation without wheeze or retraction. Heart is regular. Abdomen is benign. Bowel sounds positive. Genitourinary/rectal: Not done. Extremities show equal strength, full range of motion. No cyanosis, clubbing or edema. Peripheral pulses equal and palpable bilaterally. Skin is warm and dry. IMPRESSION/PLAN: Psychiatric plan per psychiatry. Complaining of menstrual cramps. Ibuprofen 800 mg one by mouth every 8 hours as needed for cramps.
[2016-06-14 06:34] VITALS: BP 109/57
[2016-06-14] MEDS: SERTRALINE HCL 25 MG TABLET PO SCH (08:28)
--- NOTE | 2016-06-14 12:12 | IPNPDOC ---
[facility] Progress Note Progress Note DATE OF SERVICE: 06/14/16 HISTORY: Patient is 21-year-old female who was admitted due to increasing symptoms of anxiety, depression, and suicidal thinking with plan to hang self, had also been experiencing self-injurious thinking involving cutting self. Patient reportedly has a history of ADHD as a child. Patient has been visible, attending groups, and is socializing with peers. Patient is currently taking Zoloft and trazodone, indicates trazodone is effective for sleep and denies nightmares or other symptoms. Addendum: Patient makes request for "a form" to be given to 's command informing them of patient's hospitalization and to alert her employer that she is in the hospital. 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 These letters were signed today and will be given to patient's after the chain of command meeting. VITAL SIGNS: See below. 97.6 73 16 109/57. NEW TEST RESULTS: Patient denies history of chronic medical problems, indicates she has a benign heart murmur and a history of surgery for labial fusion. Labs at time of admission indicate low anion gap. UDS negative on admission HCG negative on admission EKG 06/12/16 sinus rhythm CURRENT MEDICATIONS: See below. Sertraline 50 mg po q am, Trazodone 100 mg po q hs. 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 Speech: Is of increased rate, normal volume. Language: Intact. Thought processes: Clear, goal-directed. Thought content: Logical, rational. No paranoia is evident. Associations: Intact. Description of abnormal or psychotic thoughts: Denies hallucinations, delusions , paranoia - feels "Mellowed out", preoccupations, homicidal or suicidal ideation/ plan, obsessions or compulsions. Judgment: Poor. Insight: Poor. Oriented to: Time, place, person and surroundings. Recent and remote memory: "No problems". Attention span and concentration: Fair. Language: Normal. Fund of knowledge: Adequate. Mood: "Really good". No irritability, mood lability noted. 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 Patient rates depression as a 0/10, further states she has had no depression since her admission. Affect: Appropriate, anxious, manic, congruent with mood. DIAGNOSES: Unspecified mood disorder, rule out MDD, rule out adjustment disorder with mixed anxiety and depressed mood, ADHD history by patient report ASSESSMENT: Patient is adjusting well to unit, is attending groups, is visible, is easily engaged. Patient indicates current medication regimen is effective and she denies medication side effects. Patient denies suicidal and homicidal thinking and is able to verbalize how to access supportive services on unit if needed.Patient indicates she feels "better," since beginning Zoloft, denies medication side effects. Patient reports improvement to concentration and focus , indicates energy level is stable, denies mood lability, denies panic and irritability, states appetite is stable. Patient rates current anxiety level is 5/10, depression 2/10, denies suicidal and homicidal ideation, denies audiovisual hallucinations, and denies urge to engage in self-injurious behavior. Patient denies chest pain at time of interaction, further denies symptoms of shortness of breath, dizziness, palpitations, headache. Patient reported chest pain earlier in the day and on 06/12/16, EKG done with normal results. Patient has been instructed to alert nursing immediately if symptoms return. Nursing has informed PA who is monitoring patient. Patient indicates her discharge plan is to return home, verbalizes she is comfortable with discharge to home even though leaves for deployment. Patient states she is in agreement with 's deployment, notes 18-year-old brother- in-law also resides in the home, along with 2 dogs. Patient indicates brother-in -law and dogs are "my good support," adds she has a job at [employer] which she feels motivated to try to hold onto as well, is planning to begin attending [email or web address] school. Pt. states "I've been sleeping really good, through the night and feel well rested". Pt. feels she slept for 7 hours. Patient indicates discharge plan is to home, states she is in agreement with deploying, indicates she wants to participate in outpatient psychotherapy and medication management services after discharge from hospital. Will monitor patient's response to Zoloft and trazodone, monitor for side effects, and evaluate patient safety, resolution of suicidal ideation, and discharge readiness. MANAGEMENT PLAN: Continue Zoloft 25 mg po q am and Trazodone 100 mg po hs insomnia Maintain safety precautions Patient to attend groups and participate in unit programming to develop coping strategies Engage patient in discharge planning process and arrange meeting with support system to ensure safe discharge planning when appropriate Patient to follow up with PCM upon discharge TIME SPENT: 25 minutes. Vital Signs Vital Signs Date Time Temp Pulse Resp B/P Pulse Ox O2 Delivery O2 Flow Rate FiO2 06/14/16 06:34 97.6 73 16 109/57 06/13/16 14:20 98 Room Air Current Medications Current Medications Acetaminophen (Tylenol Tab) 650 mg Q6HP PRN PO HEADACHE or DISCOMFORT Last administered on 06/12/16 06:40; Start 06/10/16 at 16:30; Stop 07/10/16 at 16:29 Al Hydrox/Mg Hydrox/Simethicone (Mylanta) 30 ml Q4HP PRN PO HEARTBURN/ INDIGESTION Last administered on 06/11/16 16:22; Start 06/10/16 at 16:30; Stop 07/10/16 at 16:29 Home Med (Med Rec Complete!) ASDIRECTED XX ; Start 06/10/16 at 16:30; Stop at 16:52; Status DC Ibuprofen (Advil) 800 mg Q8HP PRN PO MODERATE PAIN (PS 5-7) Last administered on 06/13/16 08:19; Start 06/12/16 at 22:00; Stop 07/12/16 at 21:59 Magnesium Hydroxide (Milk Of Magnesia) 30 ml DAILYPRN PRN PO CONSTIPATION; Start 06/10/16 at 16:30; Stop 07/10/16 at 16:29 Sertraline HCl (Zoloft) 25 mg DAILY PO Last administered on 06/14/16 08:28; Start 06/12/16 at 09:00; Stop 06/14/16 at 10:00; Status DC Sertraline HCl (Zoloft) 50 mg QAM PO ; Start 06/15/16 at 09:00; Stop 07/15/16 at 08:59 Trazodone HCl (Desyrel) 50 mg QHSP PRN PO INSOMNIA Last administered on 20:23; Start 06/10/16 at 16:30; Stop 06/11/16 at 12:08; Status DC Trazodone HCl (Desyrel) 100 mg QHS PO Last administered on 06/13/16 22:11; Start 06/11/16 at 21:00; Stop 07/11/16 at 20:59 Allergies Coded Allergies: Oxycodone (Verified Allergy, Unknown, 06/10/16) Prednisone (Unverified Allergy, Unknown, 06/10/16) LEONEL LANG NP Jun 14, 2016 12:12
[2016-06-14 18:00] VITALS: BP 118/73
[2016-06-14] MEDS: traZODone 100 MG TAB PO SCH (22:17)
[2016-06-15 06:40] VITALS: BP 109/57
[2016-06-15] MEDS: SERTRALINE HCL 50 MG TAB PO SCH (08:10)
--- NOTE | 2016-06-15 12:26 | IPNPDOC ---
[facility] Progress Note Progress Note DATE OF SERVICE: 06/15/16 HISTORY: Patient is 21-year-old female who was admitted due to increasing symptoms of anxiety, depression, and suicidal thinking with plan to hang self, had also been experiencing self-injurious thinking involving cutting self. Patient reportedly has a history of ADHD as a child. Patient has been visible, attending groups, and is socializing with peers. Patient is currently taking Zoloft and trazodone, indicates trazodone is effective for sleep and denies nightmares or other symptoms. Patient's Zoloft dose was increased this morning the patient indicates she feels medication is helpful in reducing symptoms of anxiety and depression. Patient indicates concentration and focus is within normal limits, reports improved energy level, states appetite is stable. Patient rates current anxiety level as 3/2, depression 0/2, denies suicidal and homicidal ideation, denies audiovisual hallucinations, denies urge to engage in self-injurious behavior. Patient denies irritability, panic, and mood lability, states to story writer, "I haven't had the chest pain for days now." Patient further denies symptoms of shortness of breath, dizziness, palpitations, and headache. Addendum: Entry made by covering provider on 06/14/16 - These letters were signed today and will be given to patient's after the chain of command meeting. Addendum: Entry made by story writer on 06/13/16 - Patient makes request for "a form" to be given to 's command informing them of patient's hospitalization and to alert her employer that she is in the hospital, informed story writer she would speak with her regarding necessary form. 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 VITAL SIGNS: See below. NEW TEST RESULTS: Patient denies history of chronic medical problems, indicates she has a benign heart murmur and a history of surgery for labial fusion. Labs at time of admission indicate low anion gap. UDS negative on admission HCG negative on admission EKG 06/12/16 sinus rhythm CURRENT MEDICATIONS: See below. Sertraline 50 mg po q am, Trazodone 100 mg po q hs. 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 Speech: Is of normal rate, rhythm, volume. Language: Intact. Thought processes: Clear, goal-directed. Thought content: Logical, rational. No paranoia is evident. Associations: Intact. Description of abnormal or psychotic thoughts: Denies hallucinations, delusions , paranoia, preoccupations, homicidal or suicidal ideation/ plan, obsessions or compulsions. Judgment: Fair, some improvement. Insight: Fair, some improvement Oriented to : Time, place, person and surroundings. Recent and remote memory: Adequate. Attention span and concentration: Adequate Language: Normal. Fund of knowledge : Adequate. Mood: "I'm feeling pretty good." No irritability, mood lability noted. Affect: Mild constriction, anxious, congruent with mood. DIAGNOSES: Unspecified mood disorder, rule out MDD, rule out adjustment disorder with mixed anxiety and depressed mood, ADHD history by patient report ASSESSMENT: Patient is adjusting well to unit, is attending groups, is visible, is easily engaged. Patient indicates current medication regimen is effective and she denies medication side effects. Patient denies suicidal and homicidal thinking and is able to verbalize how to access supportive services on unit if needed. Patient denies symptoms of chest pain and has been instructed to alert nursing immediately if symptoms return. Nursing has informed PA who is monitoring patient. Patient indicates her discharge plan is to return home, verbalizes she is comfortable with discharge to home even though leaves for deployment. Patient states she is in agreement with 's deployment, notes 18-year-old [id number] also resides in the home, along with 2 dogs. Patient indicates [id number] and dogs are good support, denies having financial concerns related to [id number] not working, adds she has a job at [employer] which she feels motivated to retain "as something for myself; I feel strong and powerful and I know I can do this." Patient states she is also applying to attend [employer]. Patient indicates discharge plan is to home, states she is in agreement with deploying, indicates she wants to participate in outpatient psychotherapy and medication management services after discharge from hospital. Will monitor patient's response to Zoloft and trazodone, monitor for side effects, and evaluate patient safety, resolution of suicidal ideation, and discharge readiness. MANAGEMENT PLAN: Increase Zoloft to 50 mg po q am and continue Trazodone 100 mg po hs insomnia Maintain safety precautions Patient to attend groups and participate in unit programming to develop coping strategies Engage patient in discharge planning process and arrange meeting with support system to ensure safe discharge planning when appropriate Patient to follow up with PCM upon discharge TIME SPENT: 35 minutes. Vital Signs Vital Signs Date Time Temp Pulse Resp B/P Pulse Ox O2 Delivery O2 Flow Rate FiO2 06/15/16 06:40 99.9 72 18 109/57 06/13/16 14:20 98 Room Air Current Medications Current Medications Acetaminophen (Tylenol Tab) 650 mg Q6HP PRN PO HEADACHE or DISCOMFORT Last administered on 06/12/16 06:40; Start 06/10/16 at 16:30; Stop 07/10/16 at 16:29 Al Hydrox/Mg Hydrox/Simethicone (Mylanta) 30 ml Q4HP PRN PO HEARTBURN/ INDIGESTION Last administered on 06/11/16 16:22; Start 06/10/16 at 16:30; Stop 07/10/16 at 16:29 Home Med (Med Rec Complete!) ASDIRECTED XX ; Start 06/10/16 at 16:30; Stop at 16:52; Status DC Ibuprofen (Advil) 800 mg Q8HP PRN PO MODERATE PAIN (PS 5-7) Last administered on 06/13/16 08:19; Start 06/12/16 at 22:00; Stop 07/12/16 at 21:59 Magnesium Hydroxide (Milk Of Magnesia) 30 ml DAILYPRN PRN PO CONSTIPATION; Start 06/10/16 at 16:30; Stop 07/10/16 at 16:29 Sertraline HCl (Zoloft) 25 mg DAILY PO Last administered on 06/14/16 08:28; Start 06/12/16 at 09:00; Stop 06/14/16 at 10:00; Status DC Sertraline HCl (Zoloft) 50 mg QAM PO Last administered on 06/15/16 08:10; Start 06/15/16 at 09:00; Stop 07/15/16 at 08:59 Trazodone HCl (Desyrel) 50 mg QHSP PRN PO INSOMNIA Last administered on 20:23; Start 06/10/16 at 16:30; Stop 06/11/16 at 12:08; Status DC Trazodone HCl (Desyrel) 100 mg QHS PO Last administered on 06/14/16 22:17; Start 06/11/16 at 21:00; Stop 07/11/16 at 20:59 Allergies Coded Allergies: Oxycodone (Verified Allergy, Unknown, 06/10/16) Prednisone (Unverified Allergy, Unknown, 06/10/16) Joy Liao Jun 15, 2016 12:26 Prednisone (Unverified Allergy, Unknown, 06/10/16) Joy Liao Jun 15, 2016 12:26
[2016-06-15 18:00] VITALS: BP 125/58
[2016-06-15] MEDS: traZODone 100 MG TAB PO SCH (21:53)
[2016-06-16 06:39] VITALS: BP 111/62
[2016-06-16] MEDS: SERTRALINE HCL 50 MG TAB PO SCH (08:13)
[2016-06-16 18:00] VITALS: BP 123/59
--- NOTE | 2016-06-16 18:16 | IPNPDOC ---
[facility] Progress Note Progress Note DATE OF SERVICE: 06/16/16 HISTORY: Patient is 21-year-old female who was admitted due to increasing symptoms of anxiety, depression, and suicidal thinking with plan to hang self, had also been experiencing self-injurious thinking involving cutting self. Patient reportedly has a history of ADHD as a child. Patient has been visible, attending groups, and is socializing with peers. Patient is currently taking Zoloft and trazodone, indicates trazodone is effective for sleep and denies nightmares or other symptoms. Patient's Zoloft dose was increased yesterday morning the patient indicates she feels medication is helpful in reducing symptoms of anxiety and depression. Patient indicates concentration and focus is within normal limits, reports improved energy level, states appetite is stable. Patient expresses remorse today as her is leaving for deployment , indicates she is attempting to "keep it together, I was really sad but I'm trying to deal with it as an adult by increasing my coping mechanisms and the groups are really helping me with that," rates current anxiety level as 3/10, depression 2/10, denies suicidal and homicidal ideation, denies audiovisual hallucinations, denies urge to engage in self-injurious behavior. Patient denies irritability, panic, and mood lability. Patient denies physical pain and has not experienced chest pain, further denies symptoms of shortness of breath, dizziness, palpitations, and headache. Addendum: Entry made by repairer typewriter on 06/13/16 - Patient makes request for "a form" to be given to 's command informing them of patient's hospitalization and to alert her employer that she is in the hospital, informed repairer typewriter she would speak with her regarding necessary form. 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 Addendum: Entry made by covering provider on 06/14/16 - These letters were signed today and will be given to patient's after the chain of command meeting. VITAL SIGNS: See below. NEW TEST RESULTS: Patient denies history of chronic medical problems, indicates she has a benign heart murmur and a history of surgery for labial fusion. Labs at time of admission indicate low anion gap. UDS negative on admission HCG negative on admission EKG 06/12/16 sinus rhythm CURRENT MEDICATIONS: See below. Sertraline 50 mg po q am, Trazodone 100 mg po q hs. 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 Speech: Is of normal rate, rhythm, volume. Language: Intact. Thought processes: Clear, goal-directed. Thought content: Logical, rational. No paranoia is evident. Associations: Intact. Description of abnormal or psychotic thoughts: Denies hallucinations, delusions , paranoia, preoccupations, homicidal or suicidal ideation/ plan, obsessions or compulsions. Judgment: Fair, some improvement. Insight: Fair, some improvement Oriented to : Time, place, person and surroundings. Recent and remote memory: Adequate. Attention span and concentration: Adequate Language: Normal. Fund of knowledge : Adequate. Mood: "I'm sad, my is leaving today." No mood lability noted. Affect: Mild constriction, anxious, congruent with mood. DIAGNOSES: Unspecified mood disorder, rule out MDD, rule out adjustment disorder with mixed anxiety and depressed mood, ADHD history by patient report ASSESSMENT: Patient continues to adjust to unit, is attending groups, is visible , is easily engaged, seeks out staff support when needed. Patient indicates current medication regimen is effective and she denies medication side effects. Patient denies suicidal and homicidal thinking and is able to verbalize how to access supportive services on unit if needed. Patient denies symptoms of chest pain and has been instructed to alert nursing if symptoms return, PA has also been informed to his monitoring patient. Patient reiterates her discharge plan is to return home, verbalizes she is comfortable with discharge to home even though is leaving for deployment. Patient states she is in agreement with 's deployment, notes 18-year-old [id number]-lg-jhu also resides in the home, along with 2 dogs. Patient indicates [id number] and dogs are good support, denies having financial concerns related to [id number] not working , adds she has a job at [employer] which she feels motivated to retain, notes she has friends at work who are also spouses and who are supportive. Patient states she is also applying to attend [employer]. Patient indicates discharge plan is to home, states she is in agreement with deploying, indicates she wants to participate in outpatient psychotherapy and medication management services after discharge from hospital. clinical education academic coordinator will schedule family meeting, investigate support groups and other supportive resources available to patient through the [employer], and begin making preparations for patient to be discharged to home. Will continue to monitor patient's response to Zoloft and trazodone, monitor for side effects, and evaluate patient safety, resolution of suicidal ideation, and discharge readiness. MANAGEMENT PLAN: Continue Zoloft 50 mg po q am and continue Trazodone 100 mg po hs insomnia Maintain safety precautions Patient may check email to ensure her safe arrival at deployment site tomorrow evening, 06/17/16, with staff supervision Patient to attend groups and participate in unit programming to develop coping strategies Engage patient in discharge planning process and arrange meeting with support system to ensure safe discharge planning when appropriate Patient to follow up with PCM upon discharge TIME SPENT: 25 minutes. Vital Signs Vital Signs Date Time Temp Pulse Resp B/P Pulse Ox O2 Delivery O2 Flow Rate FiO2 06/16/16 06:39 96.8 92 20 111/62 06/13/16 14:20 98 Room Air Current Medications Current Medications Acetaminophen (Tylenol Tab) 650 mg Q6HP PRN PO HEADACHE or DISCOMFORT Last administered on 06/12/16 06:40; Start 06/10/16 at 16:30; Stop 07/10/16 at 16:29 Al Hydrox/Mg Hydrox/Simethicone (Mylanta) 30 ml Q4HP PRN PO HEARTBURN/ INDIGESTION Last administered on 06/11/16 16:22; Start 06/10/16 at 16:30; Stop 07/10/16 at 16:29 Home Med (Med Rec Complete!) ASDIRECTED XX ; Start 06/10/16 at 16:30; Stop at 16:52; Status DC Ibuprofen (Advil) 800 mg Q8HP PRN PO MODERATE PAIN (PS 5-7) Last administered on 06/13/16 08:19; Start 06/12/16 at 22:00; Stop 07/12/16 at 21:59 Magnesium Hydroxide (Milk Of Magnesia) 30 ml DAILYPRN PRN PO CONSTIPATION; Start 06/10/16 at 16:30; Stop 07/10/16 at 16:29 Sertraline HCl (Zoloft) 25 mg DAILY PO Last administered on 06/14/16 08:28; Start 06/12/16 at 09:00; Stop 06/14/16 at 10:00; Status DC Sertraline HCl (Zoloft) 50 mg QAM PO Last administered on 06/16/16 08:13; Start 06/15/16 at 09:00; Stop 07/15/16 at 08:59 Trazodone HCl (Desyrel) 50 mg QHSP PRN PO INSOMNIA Last administered on 20:23; Start 06/10/16 at 16:30; Stop 06/11/16 at 12:08; Status DC Trazodone HCl (Desyrel) 100 mg QHS PO Last administered on 06/15/16 21:53; Start 06/11/16 at 21:00; Stop 07/11/16 at 20:59 Allergies Coded Allergies: Oxycodone (Verified Allergy, Unknown, 06/10/16) Prednisone (Unverified Allergy, Unknown, 06/10/16) Joy Liao Jun 16, 2016 18:16 Joy Liao Jun 16, 2016 18:16
[2016-06-16] MEDS: traZODone 100 MG TAB PO SCH (22:05)
[2016-06-17 06:48] VITALS: BP 109/58
[2016-06-17] MEDS: SERTRALINE HCL 50 MG TAB PO SCH (08:39)
[2016-06-17 18:00] VITALS: BP 104/57
--- NOTE | 2016-06-17 18:50 | IPNPDOC ---
[facility] Progress Note Progress Note DATE OF SERVICE: 06/17/16 HISTORY: Patient is 21-year-old female who was admitted due to increasing symptoms of anxiety, depression, and suicidal thinking with plan to hang self, had also been experiencing self-injurious thinking involving cutting self. Patient reportedly has a history of ADHD as a child. Patient has been visible, attending groups, and is socializing with peers. Patient is currently taking Zoloft and trazodone, indicates trazodone is effective for sleep and denies nightmares, notes recent Zoloft dose increase is helpful in reducing symptoms of anxiety and depression. Patient indicates concentration and focus is within normal limits, reports improved energy level, states appetite is stable. Patient informs telegraphic typewriter operator today that she is attempting to deal with who left for deployment yesterday, states she feels very supported in the hospital environment, notes "I am proud of myself, I'm trying to handle it like adults and I feel like I'll be strong enough when I get out on Monday." Patient expresses some anxiety related to discharge on Monday, informs telegraphic typewriter operator she has a friend will be transporting her home on Monday and who will be staying with her at her apartment to help her adjust to living at home without her . Patient rates current anxiety level as 2/10, depression 1/10, denies suicidal and homicidal ideation, denies audiovisual hallucinations, denies urge to engage in self-injurious behavior. Patient denies irritability, panic, and mood lability. Patient denies physical pain and has not experienced chest pain, further denies symptoms of shortness of breath, dizziness, palpitations, and headache. VITAL SIGNS: See below. NEW TEST RESULTS: Patient denies history of chronic medical problems, indicates she has a benign heart murmur and a history of surgery for labial fusion. Labs at time of admission indicate low anion gap. UDS negative on admission HCG negative on admission EKG 06/12/16 sinus rhythm CURRENT MEDICATIONS: See below. Sertraline 50 mg po q am, Trazodone 100 mg po q hs. 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 Speech: Is of normal rate, rhythm, volume. Language: Intact. Thought processes: Clear, goal-directed. Thought content: Logical, rational. No paranoia is evident. Associations: Intact. Description of abnormal or psychotic thoughts: Denies hallucinations, delusions , paranoia, preoccupations, homicidal or suicidal ideation/ plan, obsessions or compulsions. Judgment: Fair, some improvement. Insight: Fair, some improvement Oriented to : Time, place, person and surroundings. Recent and remote memory: Adequate. Attention span and concentration: Adequate Language: Normal. Fund of knowledge : Adequate. Mood: "I'm sad my is gone and I'm trying to adjust." No mood lability noted. Affect: Mild constriction, anxious, congruent with mood. DIAGNOSES: Unspecified mood disorder, rule out MDD, rule out adjustment disorder with mixed anxiety and depressed mood, ADHD history by patient report ASSESSMENT: Patient continues to adjust to unit, is attending groups, is visible , is easily engaged, seeks out staff support when needed. Patient indicates current medication regimen is effective and she denies medication side effects. Patient denies suicidal and homicidal thinking and is able to verbalize how to access supportive services on unit if needed. Patient denies symptoms of chest pain and has been instructed to alert nursing if symptoms return, PA has also been informed and is monitoring patient. Patient reiterates her discharge plan is to return home, verbalizes she is comfortable with discharge to home and will have friend staying with her temporarily. Patient notes 18-year-old [id number] also resides in the home, along with 2 dogs. Patient indicates [id number]-[id number]-bby and dogs are positive support, denies having financial concerns related to [id number]-lhu not working , adds she has a job at [employer] which she feels motivated to retain, notes she has friends at work who are also spouses and who are supportive. Patient states she is also applying to attend [employer]. Patient indicates discharge plan is to home, states she is in agreement with deploying, indicates she wants to participate in outpatient psychotherapy and medication management services after discharge from hospital. quality improvement coordinator will schedule family meeting, investigate support groups and other supportive resources available to patient through the [employer], and continue to make preparations for patient to be discharged to home. Will continue to monitor patient's response to Zoloft and trazodone, monitor for side effects, and evaluate patient safety, resolution of suicidal ideation, and discharge readiness. MANAGEMENT PLAN: Continue Zoloft 50 mg po q am and continue Trazodone 100 mg po hs insomnia Maintain safety precautions Patient may check email to ensure her safe arrival at deployment site , with staff supervision Patient to attend groups and participate in unit programming to develop coping strategies Engage patient in discharge planning process and arrange meeting with support system to ensure safe discharge planning when appropriate Patient to follow up with PCM upon discharge TIME SPENT: 25 minutes. Vital Signs Vital Signs Date Time Temp Pulse Resp B/P Pulse Ox O2 Delivery O2 Flow Rate FiO2 06/17/16 18:00 97.3 77 16 104/57 06/13/16 14:20 98 Room Air Current Medications Current Medications Acetaminophen (Tylenol Tab) 650 mg Q6HP PRN PO HEADACHE or DISCOMFORT Last administered on 06/12/16 06:40; Start 06/10/16 at 16:30; Stop 07/10/16 at 16:29 Al Hydrox/Mg Hydrox/Simethicone (Mylanta) 30 ml Q4HP PRN PO HEARTBURN/ INDIGESTION Last administered on 06/11/16 16:22; Start 06/10/16 at 16:30; Stop 07/10/16 at 16:29 Home Med (Med Rec Complete!) ASDIRECTED XX ; Start 06/10/16 at 16:30; Stop at 16:52; Status DC Ibuprofen (Advil) 800 mg Q8HP PRN PO MODERATE PAIN (PS 5-7) Last administered on 06/13/16 08:19; Start 06/12/16 at 22:00; Stop 07/12/16 at 21:59 Magnesium Hydroxide (Milk Of Magnesia) 30 ml DAILYPRN PRN PO CONSTIPATION; Start 06/10/16 at 16:30; Stop 07/10/16 at 16:29 Sertraline HCl (Zoloft) 25 mg DAILY PO Last administered on 06/14/16 08:28; Start 06/12/16 at 09:00; Stop 06/14/16 at 10:00; Status DC Sertraline HCl (Zoloft) 50 mg QAM PO Last administered on 06/17/16 08:39; Start 06/15/16 at 09:00; Stop 07/15/16 at 08:59 Trazodone HCl (Desyrel) 50 mg QHSP PRN PO INSOMNIA Last administered on 20:23; Start 06/10/16 at 16:30; Stop 06/11/16 at 12:08; Status DC Trazodone HCl (Desyrel) 100 mg QHS PO Last administered on 06/16/16 22:05; Start 06/11/16 at 21:00; Stop 07/11/16 at 20:59 Allergies Coded Allergies: Oxycodone (Verified Allergy, Unknown, 06/10/16) Prednisone (Unverified Allergy, Unknown, 06/10/16) Joy Liao Jun 17, 2016 18:50
[2016-06-17] MEDS: traZODone 100 MG TAB PO SCH (23:01)
[2016-06-18 06:38] VITALS: BP 105/58
[2016-06-18] MEDS: SERTRALINE HCL 50 MG TAB PO SCH (08:02)
[2016-06-18 18:21] VITALS: BP 117/63
[2016-06-18] MEDS: traZODone 100 MG TAB PO SCH (22:56)
[2016-06-19 06:43] VITALS: BP 101/57
[2016-06-19] MEDS: SERTRALINE HCL 50 MG TAB PO SCH (08:47)
[2016-06-19 18:00] VITALS: BP 120/78
[2016-06-19] MEDS: traZODone 100 MG TAB PO SCH (21:55)
[2016-06-20 06:40] VITALS: BP 108/58
[2016-06-20] MEDS: SERTRALINE HCL 50 MG TAB PO SCH (08:15)
[2016-06-20] MEDS ORDERED: traZODone 100 MG TAB PO PRN (13:59)
[2016-06-20] MEDS ORDERED: TRAZ10TA PO (14:06)
[2016-06-20] MEDS ORDERED: ZOLO50TA PO (14:06)
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
== END 2016-06-20 14:20 | disposition home or self-care (01) | DRG 885 ==
LOC: M ED 11:28 → M PSY 17:15
PROVIDERS: ADMIT Psychiatry & Neurology Psychiatry; ATTEND Psychiatry & Neurology Psychiatry
DX: F39 Unspecified mood [affective] disorder (principal); F43.23 Adjustment disorder with mixed anxiety and depressed mood; Z88.5 Allergy status to narcotic agent; F90.9 Attention-deficit hyperactivity disorder, unspecified type

== ENCOUNTER 2016-10-16 10:34 | Emergency (ER) | payer OTHER ==
[~2016-10-16] VITALS: Ht 162.6 cm; Wt 64.0 kg
[~2016-10-16 10:34] MED LIST: TRAZ10TA PO; VITMTA PO; ZOLO50TA PO
[2016-10-16 10:35] VITALS: BP 113/62
[2016-10-16] MEDS ORDERED: HYDR25T PO (10:56)
== END 2016-10-16 12:09 | disposition left against medical advice (07) ==
LOC: M ED 11:58
DX: R06.02 Shortness of breath (principal); Z53.29 Procedure and treatment not carried out because of patient's decision for other reasons

== ENCOUNTER 2017-07-02 09:52 | Emergency (ER) | payer OTHER ==
[2017-07-02 11:02] LABS: BASO % 0.6 % (0.0-1.0); EOS # 0.1 10^3/uL (0.0-0.50); EOS % 1.9 % (0.0-3.0); HEMATOCRIT 38.5 % (36.0-47.0); HEMOGLOBIN 13.2 g/dl (12.0-16.0); IMMATURE GRANULOCYTE % 0.2 % (0-3.0); LYMPH % 32.1 % (24.0-44.0); MEAN CORPUSCULAR HEMOGLOBIN 30.1 pg (27.0-33.0); MEAN CORPUSCULAR HGB CONC 34.3 g/dl (32.0-36.5); MEAN CORPUSCULAR VOLUME 87.7 fl (80.0-96.0); MONO # 0.5 10^3/uL (0.0-0.8); MONO % 8.3 % (0.0-5.0); NEUTROPHILS # 3.5 10^3/uL (1.8-7.7); NEUTROPHILS % 56.9 % (36.0-66.0); PLATELET COUNT, AUTOMATED 256 10^3/uL (150-450); RED BLOOD COUNT 4.39 10^6/uL (4.00-5.40); RED CELL DISTRIBUTION WIDTH 11.9 % (11.5-14.5); WHITE BLOOD COUNT 6.2 10^3/uL (4.0-10.0)
[2017-07-02] MEDS: NS 1,000 ML IV (11:02)
[2017-07-02] MEDS: ONDANSETRON 4MG/2ML VIAL (J2405) IV (11:02)
[2017-07-02] MEDS: KETOROLAC 30 MG/ML VIAL (J1885) IV (11:05)
[2017-07-02 11:13] LABS: KETONE, URINE AUTO RFX NEGATIVE (NEGATIVE); LEUKOCYTE ESTERASE UR AUTO RFX NEGATIVE (NEGATIVE); MUCUS, URINE RFX SMALL (NEGATIVE); NITRITE, URINE AUTO RFX NEGATIVE (NEGATIVE); RBC, URINE AUTO RFX 1 /HPF (0-3); SPECIFIC GRAVITY UR AUTO RFX 1.023 (1.002-1.035); SQUAM EPITHELIAL CELL UR AURFX 3 /HPF (0-6); WBC, URINE AUTO RFX 1 /HPF (0-3)
[2017-07-02 11:24] LABS: ALBUMIN 4.1 GM/DL (3.2-5.2); ALBUMIN/GLOBULIN RATIO 1.41 (1.00-1.93); ALKALINE PHOSPHATASE 74 U/L (45-117); ALT/SGPT 21 U/L (12-78); AMYLASE 89 U/L (25-115); ANION GAP 5 MEQ/L (8-16); AST/SGOT 17 U/L (7-37); BILIRUBIN,DIRECT 0.1 MG/DL (0.0-0.2); BILIRUBIN,TOTAL 0.5 MG/DL (0.2-1.0); BLOOD UREA NITROGEN 10 MG/DL (7-18); CALCIUM LEVEL 8.6 MG/DL (8.5-10.1); CARBON DIOXIDE LEVEL 27 MEQ/L (21-32); CHLORIDE LEVEL 109 MEQ/L (98-107); CREATININE FOR GFR 0.75 MG/DL (0.55-1.30); GLOMERULAR FILTRATION RATE > 60.0 (>60); GLUCOSE, FASTING 92 MG/DL (70-100); LIPASE 215 U/L (73-393); POTASSIUM SERUM 4.1 MEQ/L (3.5-5.1); SODIUM LEVEL 141 MEQ/L (136-145)
== END 2017-07-02 12:04 | disposition home or self-care (01) ==
LOC: M ED 09:52
DX: R10.31 Right lower quadrant pain (principal); R10.32 Left lower quadrant pain; R11.0 Nausea; M41.9 Scoliosis, unspecified; R01.1 Cardiac murmur, unspecified; Z88.5 Allergy status to narcotic agent; Z88.8 Allergy status to other drugs, medicaments and biological substances
CPT/HCPCS: J2405

== ENCOUNTER 2017-07-16 21:34 | Emergency (ER) | payer OTHER ==
[2017-07-16] MEDS: IBUPROFEN 600 MG TAB PO (23:19)
[2017-07-16] MEDS ORDERED: ACETAMINOPHEN TAB 650MG DOSE (2X325MG) PO (23:45)
== END 2017-07-17 00:19 | disposition home or self-care (01) ==
LOC: M ED 07-17 00:19
DX: M23.92 Unspecified internal derangement of left knee (principal); V00.211A Fall from ice-skates, initial encounter; Y92.330 Ice skating rink (indoor) (outdoor) as the place of occurrence of the external cause; Y93.21 Activity, ice skating; J45.909 Unspecified asthma, uncomplicated; F41.9 Anxiety disorder, unspecified; F33.9 Major depressive disorder, recurrent, unspecified; R01.1 Cardiac murmur, unspecified; N80.9 Endometriosis, unspecified; M41.9 Scoliosis, unspecified; Z88.5 Allergy status to narcotic agent; Z88.8 Allergy status to other drugs, medicaments and biological substances
CPT/HCPCS: 73564

== ENCOUNTER → 2017-12-19 | Outpatient (REF) | payer OTHER | LOC: M SFHCPLAZ 12:32 | DX: R35.0 Frequency of micturition (principal) ==

== ENCOUNTER → 2018-01-12 | Outpatient (CLI) | payer OTHER ==
[2018-01-12 13:45] LABS: BASO % 0.3 % (0.0-1.0); EOS # 0.2 10^3/uL (0.0-0.50); EOS % 1.6 % (0.0-3.0); HEMATOCRIT 38.1 % (36.0-47.0); HEMOGLOBIN 13.4 g/dl (12.0-15.5); IMMATURE GRANULOCYTE % 0.4 % (0-3.0); LYMPH # 1.6 10^3/uL (1.5-6.5); MEAN CORPUSCULAR HEMOGLOBIN 31.3 pg (27.0-33.0); MEAN CORPUSCULAR HGB CONC 35.2 g/dl (32.0-36.5); MONO # 0.9 10^3/uL (0.0-0.8); MONO % 8.8 % (0.0-5.0); NEUTROPHILS # 7.1 10^3/uL (1.8-7.7); NEUTROPHILS % 72.9 % (36.0-66.0); PLATELET COUNT, AUTOMATED 258 10^3/uL (150-450); RED BLOOD COUNT 4.28 10^6/uL (4.00-5.40); RED CELL DISTRIBUTION WIDTH 11.8 % (11.5-14.5); WHITE BLOOD COUNT 9.8 10^3/uL (4.0-10.0)
[2018-01-12 14:38] LABS: HEPATITIS C VIRUS ABY INDEX 0.2 INDEX (<0.8)
[2018-01-12 14:38] LABS: HBsAg Prenatal NEGATIVE (NEGATIVE); HIV 1&2 SCREEN CENTAUR NEGATIVE (NEGATIVE); RUBELLA IgG QUALITATIVE >500.0 (IMMUNE)
[2018-01-12 14:40] LABS: CHLAMYDIA DNA AMPLIFICATION NEGATIVE (NEGATIVE); GC DNA AMPLIFICATION NEGATIVE (NEGATIVE)
== END ==
LOC: M SMT 10:14
DX: Z34.01 Encounter for supervision of normal first pregnancy, first trimester (principal); Z3A.01 Less than 8 weeks gestation of pregnancy
CPT/HCPCS: 86762

== ENCOUNTER → 2018-02-16 | Outpatient (REF) | payer OTHER ==
[2018-02-16 18:03] LABS: BACTERIA, URINE AUTO NEGATIVE (NEGATIVE); MUCUS, URINE SMALL (NEGATIVE); RBC, URINE AUTO 3 /HPF (0-3); SQUAMOUS EPITHELIAL CELL UR AU 5 /HPF (0-6); WBC, URINE AUTO 3 /HPF (0-3)
[2018-02-16 18:08] LABS: APPEARANCE, URINE HAZY (CLEAR); BILIRUBIN, URINE AUTO NEGATIVE (NEGATIVE); BLOOD, URINE BLOOD NEGATIVE (NEGATIVE); COLOR, URINE YELLOW (YELLOW); GLUCOSE, URINE (UA) AUTO NEGATIVE (NEGATIVE); KETONE, URINE AUTO 1+ mg/dL (NEGATIVE); LEUKOCYTE ESTERASE, URINE AUTO NEGATIVE (NEGATIVE); NITRITE, URINE AUTO NEGATIVE (NEGATIVE); PROTEIN, URINE AUTO NEGATIVE (NEGATIVE); SPECIFIC GRAVITY URINE AUTO 1.025 (1.002-1.035); UROBILINOGEN, URINE AUTO 0.2 mg/dL (0.0-2.0)
== END ==
LOC: M LAB REF 16:33
DX: N39.0 Urinary tract infection, site not specified (principal)
CPT/HCPCS: 81001

== ENCOUNTER → 2018-03-28 | Outpatient (CLI) | payer OTHER | LOC: M RAD 10:18 | DX: Z36.89 Encounter for other specified antenatal screening (principal); Z3A.18 18 weeks gestation of pregnancy | CPT/HCPCS: 76811 ==

== ENCOUNTER 2018-03-30 17:10 | Emergency (ER) | payer OTHER | END 2018-03-30 19:25 | disposition home or self-care (01) | LOC: M ED 17:10 | DX: O99.89 Other specified diseases and conditions complicating pregnancy, childbirth and the puerperium (principal); M54.9 Dorsalgia, unspecified; J45.909 Unspecified asthma, uncomplicated; O99.52 Diseases of the respiratory system complicating childbirth | CPT/HCPCS: 76815 ==

== ENCOUNTER → 2018-04-11 | Outpatient (CLI) | payer OTHER ==
[~2018-04-11] MED LIST changes: +HYDR-3363 PO; +PRENTAB40 PO; +ZOFR4TAB14 PO
--- NOTE | 2018-04-11 17:18 | REP ---
Clinical: Anatomical evaluation. Comparison: 03/30/2018 . Findings: Examination demonstrates a single live intrauterine in cephalic presentation. motion is identified by technologist. Placenta is noted posterior and grade grade 1 without evidence for placenta previa or abruption. Amniotic fluid volume is normal. Cervix measures 4.1 cm in length and appears closed. No evidence for nuchal cord. Gestational age by LMP 20 weeks 1 day with NANY 08/28/2018 . Gestational age by current measurements 20 weeks 3 days with NANY 08/26/2018 . FHR equals 140 beats per minute. Estimated weight 340 grams ( 51st percentile). Anatomical assessment demonstrates normal structures including cranium, choroid plexus, cavum, cerebellum/posterior fossa, facial features, lungs, four-chamber heart/ventricular outflow tracts, diaphragm, stomach, cord insertion/three-vessel cord, kidneys/bladder, and extremities. Echogenic focus within the left cardiac ventricle likely prominent chordae tendineae. Impression: Single live intrauterine in cephalic presentation demonstrating appropriate interval growth. In conjunction with prior examination anatomical assessment is essentially complete and normal. Electronically Signed by Sachin Aguirre MD 04/11/2018 05:09 P
== END ==
LOC: M RAD 08:44
PROVIDERS: ATTEND Advanced Practice Midwife
DX: Z34.82 Encounter for supervision of other normal pregnancy, second trimester (principal)

== ENCOUNTER → 2018-05-16 | Outpatient (CLI) | payer OTHER ==
[2018-05-16 13:36] LABS: HEMATOCRIT 35.4 % (36.0-47.0); HEMOGLOBIN 11.6 g/dl (12.0-15.5); MEAN CORPUSCULAR HEMOGLOBIN 30.4 pg (27.0-33.0); MEAN CORPUSCULAR HGB CONC 32.8 g/dl (32.0-36.5); MEAN CORPUSCULAR VOLUME 92.9 fl (80.0-96.0); PLATELET COUNT, AUTOMATED 280 10^3/uL (150-450); RED BLOOD COUNT 3.81 10^6/uL (4.00-5.40); WHITE BLOOD COUNT 12.5 10^3/uL (4.0-10.0)
== END ==
LOC: M SMT 09:24
PROVIDERS: ATTEND Obstetrics & Gynecology
DX: Z36.89 Encounter for other specified antenatal screening (principal); Z3A.00 Weeks of gestation of pregnancy not specified
CPT/HCPCS: 36415; 82950; 85027; 86850; 86900; 86901; J2790

== ENCOUNTER → 2018-05-29 | Outpatient (CLI) | payer OTHER ==
[~2018-05-29] VITALS: Ht 162.6 cm; Wt 78.2 kg
[~2018-05-29] MED LIST changes: +RHOGAM 300 MCG (1500 IU) INJ (J2790) IM SCH
[2018-05-29 11:16] VITALS: BP 119/64
[2018-05-29 12:18] VITALS: BP 118/57
--- NOTE | 2018-05-29 12:46 | NUR ---
L&D Triage 23yo G1 at 27+0 weeks. Status post slip and fall. Fell on her back, with no abdominal / uterine direct contact. Started to have low back pain and intermittent cramping after fall. No VB / LOF. +FM. PN course uncomplicated thus far. PMH/SH reviewed; no changes VSS, normotensive, normal HR, afebrile Abd: soft, nontender, no uterine / fundal tenderness. no guarding / rebound tenderness Ext: no c/c/e EFM: Reactive, mod lorrie, normal baseline, no decels. [place]: rare / intermittent ctx/BH A/P: 23yo G1 at 27+0 weeks s/p slip and fall. Reassuring maternal and status. -cEFM/[place]; prolonged monitoring -Labs: CBC, KB, Coag panel. -RhoGAM ordered; pt is Rh neg Nguyen Amezcua DO Addendum/Progress Note Pt continues to deny VB/LOF. Mild pelvic discomfort. +FM. Denies distinctly feeling uctx VSS/af Abd: soft,nt,nd,uterine fundus nt EFM: Reactive,mod lorrie, normal baseline, no decels. [place]: irreg / rare ctx Labs: wnl (see [employer] "labs") A/P: 23yo G1 at 27+0 weeks. No e/o placental abruption. Maternal and status reassuring. RhoGAM given today instead of waiting for PN visit. Routine fever/infectious, bleeding, pain, labor, [facility] precautions reviewed. F/u in office as scheduled. Nguyen Amezcua DO
[2018-05-29 13:32] LABS: HEMATOCRIT 32.8 % (36.0-47.0); HEMOGLOBIN 11.1 g/dl (12.0-15.5); MEAN CORPUSCULAR HEMOGLOBIN 30.8 pg (27.0-33.0); MEAN CORPUSCULAR HGB CONC 33.8 g/dl (32.0-36.5); MEAN CORPUSCULAR VOLUME 91.1 fl (80.0-96.0); PLATELET COUNT, AUTOMATED 259 10^3/uL (150-450); WHITE BLOOD COUNT 12.8 10^3/uL (4.0-10.0)
[2018-05-29 13:44] LABS: INR 0.96; PROTHROMBIN TIME 12.9 SECONDS (12.1-14.4)
[2018-05-29 13:45] LABS: PARTIAL THROMBOPLASTIN TIME 29.3 SECONDS (25.4-37.6)
[2018-05-29 14:30] VITALS: BP 113/62
== END ==
LOC: M LDO 10:48
PROVIDERS: ATTEND Obstetrics & Gynecology
DX: Z04.3 Encounter for examination and observation following other accident (principal); W19.XXXA Unspecified fall, initial encounter; Y92.89 Other specified places as the place of occurrence of the external cause; Y93.89 Activity, other specified; Y99.8 Other external cause status; O36.0131 Maternal care for anti-D [Rh] antibodies, third trimester, fetus 1; Z3A.28 28 weeks gestation of pregnancy
CPT/HCPCS: 36415; 59025; 85027; 85384; 85460; 85610; 85730; 86850; 86900; 86901; G0378; G0463; J2790

== ENCOUNTER 2018-07-16 08:56 | Outpatient (CLI) | payer OTHER ==
[~2018-07-16] VITALS: Ht 162.6 cm; Wt 83.8 kg
[~2018-07-16 08:56] MED LIST changes: -RHOGAM 300 MCG (1500 IU) INJ (J2790) IM SCH
[2018-07-16 09:16] VITALS: BP 133/77
[2018-07-16 09:32] VITALS: BP 121/66
--- NOTE | 2018-07-16 16:39 | IPNPDOC ---
Text Note Date of Service The patient was seen on 07/16/18. NOTE Subjective: Patient is a 23-year-old who is a at 33.6 weeks gestation with an NANY of 08/28/18 based off of her 1st trimester ultrasound. Her has been complicated with anxiety, depression, and back pain. She presents to L&D with complaints of vomiting 4-6 times last night. she hasn't vomited since early this morning. She reports she hasn't eaten anything since last night at dinner. She also reports fatigue and increased fatigue when she is ambulating. She reports some SOB but denies feeling like she is gasping for breath, increased respirations or increased respiratory effort. She denies heart palpitations or dizziness with ambulation or when her SOB occurs. She reports she feels like it is difficult to take a deep breath at times. Reports back pain that she has been feeling most of her that has gotten worse over the last 2 weeks. She has tried chiropractor and maternity support belt without any improvement. She reports ray [place] contractions. She reports they are not painful but she fee ls tightening in her abdomen when they occur and isn't sure this is normal. She reports active movement. She denies leaking of fluid or vaginal bleeding. 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 FHR: 140; moderate variability, positive accelerations, no decelerations. Contractions irregular. Abdomen palpates soft and contractions palpate very mild. A+Ox3; Respiratory rate is regular, no use of accessory muscles, and lungs clear bilaterally. SpO2 between 97-100%. Had patient get up and ambulate in the room. No decrease or change in SpO2. Assessment: IUP at 33.6 weeks gestation, upper back pain, nausea, shortness of breath related to Plan: Patient discharged to home with her . Reviewed comfort measures for back pain. Encouraged BRAT diet. Reviewed proper application of maternity support belt. Reviewed normal changes related to including SOB related to and ray [place]. Reviewed what isn't normal with patient including painful contractions (more than 6 per hour), other labor signs, vaginal bleeding, decreased movement, and kick counts, and danger signs to report. Patient to follow-up for her routine OB appointment. VS,Fishbone, I+O VS, Fishbone, I+O Vital Signs Date Time Temp Pulse Resp B/P (MAP) Pulse Ox O2 Delivery O2 Flow Rate FiO2 07/16/18 09:32 70 16 121/66 (84) 97 07/16/18 09:16 99.0 KEVIN NORMAN CNM Jul 16, 2018 16:39
== END 2018-07-16 11:25 | disposition home or self-care (01) ==
LOC: M LDO 08:56
PROVIDERS: ATTEND Advanced Practice Midwife
DX: O21.2 Late vomiting of pregnancy (principal); O26.893 Other specified pregnancy related conditions, third trimester; M54.5 Low back pain; R06.02 Shortness of breath; O47.03 False labor before 37 completed weeks of gestation, third trimester; Z3A.33 33 weeks gestation of pregnancy
CPT/HCPCS: 59025; G0378; G0463

== ENCOUNTER 2018-07-26 10:04 | Inpatient (IN) | payer OTHER ==
[2018-07-26] VITALS (34 sets, daily range): BP systolic 110–138; BP diastolic 55–97
[~2018-07-26] VITALS: Ht 162.6 cm; Wt 86.0 kg
[~2018-07-26 10:04] MED LIST changes: +**PENDING PCN ENTRY XX SCH
[2018-07-26] MEDS ORDERED: PENICILLIN G POTASSIUM IV 5 MU in D5W MINI-BAG PLUS 100 ML IV STA ×2 (10:29→11:30)
[2018-07-26] MEDS ORDERED: LR 1,000 ML IV SCH (10:34)
[2018-07-26] MEDS ORDERED: OXYTOCIN DRIP 30 UNITS in APPROPRIATE DILUENT 1 EA IV SCH (10:45)
[2018-07-26 11:51] LABS: HEMOGLOBIN 11.4 g/dl (12.0-15.5); MEAN CORPUSCULAR HEMOGLOBIN 27.4 pg (27.0-33.0); MEAN CORPUSCULAR HGB CONC 32.6 g/dl (32.0-36.5); MEAN CORPUSCULAR VOLUME 84.1 fl (80.0-96.0); PLATELET COUNT, AUTOMATED 297 10^3/uL (150-450); RED BLOOD COUNT 4.16 10^6/uL (4.00-5.40); WHITE BLOOD COUNT 13.6 10^3/uL (4.0-10.0)
--- NOTE | 2018-07-26 12:42 | HPE ---
DATE OF ADMISSION: 07/26/2018 23-year-old 1, para 0 female at 35-2/7 weeks gestation by 7 week ultrasound, estimated date of confinement (EDC) of 08/28/2018, presents with spontaneous loss of fluid per vagina at 8:26 a.m. on the day of admission. She continued to leak large amounts of fluid and she headed to the office for evaluation. She denies feeling contractions. She denies vaginal bleeding. There is good movement. COURSE: The patient initiated care at 8 weeks gestation on 01/12/2018 and her first trimester blood pressure was 108/66, weight 146 pounds. The patient had a cardiology consult during due to a history heart defects that she was born with which closed spontaneously. All testing was normal. MEDICAL HISTORY: 1. Anxiety. 2. 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 SURGICAL HISTORY: 1. Vaginal surgery times two for imperforate hymen and labial adhesions. 2. Tonsillectomy and adenoidectomy. ALLERGIES: 1. PERCOCET. 2. PREDNISONE. SOCIAL HISTORY: The patient is . She denies cigarettes, alcohol or drug use. She lives in [place]. FAMILY HISTORY: Noncontributory. PHYSICAL EXAMINATION: Blood pressure 118/72, weight 188 pounds. No apparent distress. Head and neck exam normal. Lungs clear. Heart regular rate and rhythm. Abdomen nontender, gravid. heart tone category 1. Sterile vaginal exam grossly ruptured. Clear fluid noted. 3 cm, 80%, -2, posterior, soft, vertex. Contractions irregular, mild. Extremities nontender. LABS: Blood type AB negative. Rubella immune. RPR nonreactive. Diabetes screen 98. ASSESSMENT: 23-year-old 1 at 35-2/7 weeks gestation who presents with spontaneous premature rupture of membranes. PLAN: The patient will be admitted on 07/26/2018. Will administer antibiotics for Group B Streptococcus (GBS) unknown status. On exam, vaginal caliber seems normal and I seen no contraindication for vaginal delivery.
[2018-07-26] MEDS ORDERED: PENICILLIN G POTASSIUM IV 2.5 MU in APPROPRIATE DILUENT 1 EA IV SCH ×2 (14:30→15:30)
[2018-07-26] MEDS ORDERED: FENTANYL 2MCG/ML ROPIVACAINE 0.2% IN 0.9% NACL 100ML IVBAG As Ordered ONE (15:16)
[2018-07-26] MEDS ORDERED: ePHEDrine SULFATE 25 MG/5 ML(5MG/ML) SYRINGE IV PRN (16:15)
[2018-07-26] MEDS ORDERED: NALOXONE INJ 0.4 MG/1 ML VIAL (J2310) IV PRN (16:15)
[2018-07-26] MEDS ORDERED: REFRIGERATOR IV KEYS XX PRN (16:15)
[2018-07-26] MEDS ORDERED: diphenhydrAMINE INJ 50MG/ML VIAL (J1200) IV PRN (16:15)
[2018-07-26] MEDS ORDERED: EPIDURAL/PCA KEYS XX PRN (16:15)
[2018-07-26] MEDS ORDERED: EPIDURAL COMMENT XX SCH (16:15)
[2018-07-26] MEDS ORDERED: FENTANYL/ROPIVACAINE/NACL BAG 100 ML EPIDURAL SCH (16:15)
[2018-07-26] MEDS ORDERED: ONDANSETRON 4MG/2ML VIAL (J2405) IV PRN ×2 (16:15→19:30)
[2018-07-26] MEDS ORDERED: DOCUSATE SODIUM 100 MG CAP PO PRN (19:30)
[2018-07-26] MEDS ORDERED: METHYLERGONOVINE MALEATE 0.2 MG TAB PO PRN (19:30)
[2018-07-26] MEDS ORDERED: DIBUCAINE 1% OINTMENT 30GM TOP PRN (19:30)
[2018-07-26] MEDS ORDERED: LIDOCAINE 1% MDV 20ML VIAL INFIL ONE (19:30)
[2018-07-26] MEDS ORDERED: MEASLES,MUMPS,RUBELLA VACCINE INJ (MMR-II) (90707) SC SCH (19:30)
[2018-07-26] MEDS ORDERED: RHOGAM 300 MCG (1500 IU) INJ (J2790) IM SCH (19:30)
[2018-07-26] MEDS ORDERED: OXYTOCIN DRIP 30 UNITS in APPROPRIATE DILUENT 1 EA IV ONE (19:30)
--- NOTE | 2018-07-26 20:16 | DN ---
DATE: 07/26/2018 PREDELIVERY DIAGNOSIS: 35 and 2/7 weeks gestation, premature rupture of membranes, induction. POSTDELIVERY DIAGNOSIS: Delivered. PROCEDURE: Spontaneous vaginal delivery. ASSISTANT SERVICE MANAGER: Dr. Michael Salcedo ANESTHESIA: Epidural. ESTIMATED BLOOD LOSS: 300 mL. FINDINGS: 5 pound 15 ounce female . scores 8 and 9. DELIVERY SUMMARY: After a 15-minute second stage, the patient had spontaneous delivery of a 5 pound 15 ounce female infant, scores 8 and 9 under epidural anesthesia. There was no nuchal cord. The shoulders delivered with ease. The infant cried immediately and was handed to the mother. The placenta delivered spontaneously and appeared to be intact. The patient received IV Pitocin immediately after delivery of the placenta. A stellate second-degree perineal laceration was repaired with #2-0 chromic under local anesthesia in the usual fashion. Rectal exam at the end of the procedure showed intact sphincter and rectum. Sponge and needle counts were correct.
[2018-07-26] MEDS: IBUPROFEN 800 MG TAB PO PRN (23:33)
[2018-07-27 00:58] VITALS: BP 110/56
[2018-07-27] MEDS ORDERED: ACETAMINOPHEN 500 MG TAB PO PRN (02:15)
[2018-07-27 05:55] VITALS: BP 115/58
[2018-07-27] MEDS: PRENATAL VITAMINS CHEWABLE TABLET PO SCH (08:24)
[2018-07-27] MEDS: IBUPROFEN 800 MG TAB PO PRN (12:17)
[2018-07-27 17:51] VITALS: BP 115/62
[2018-07-28 06:00] VITALS: BP 116/57
[2018-07-28] MEDS ORDERED: IBUP-1114 PO (08:14)
[2018-07-28] MEDS ORDERED: MAPA500T2 PO (08:14)
[2018-07-28] MEDS: PRENATAL VITAMINS CHEWABLE TABLET PO SCH (08:15)
== END 2018-07-28 10:50 | disposition home or self-care (01) | DRG 805 ==
LOC: M LDI 10:04 → M OBS 07-27 00:55
PROVIDERS: ADMIT Specialist; ATTEND Specialist
PROC: 10E0XZZ Delivery of Products of Conception, External Approach (ICD-10-PCS; principal; 2018-07-26)
PROC: 0KQM0ZZ Repair Perineum Muscle, Open Approach (ICD-10-PCS; 2018-07-26)
DX: O42.013 Preterm premature rupture of membranes, onset of labor within 24 hours of rupture, third trimester (principal); Z37.0 Single live birth; O60.14X0 Preterm labor third trimester with preterm delivery third trimester, not applicable or unspecified; Z3A.35 35 weeks gestation of pregnancy; O70.1 Second degree perineal laceration during delivery